=== PATIENT | female | born 1995 | race Caucasian/White ===

== ENCOUNTER 2020-10-08 03:52 | Emergency (ER) | payer OTHER, SELFPAY ==
--- NOTE | ~2020-10-08 | US_ITS ---
EXAMINATION: OBSTETRIC ULTRASOUND - FIRST TRIMESTER CLINICAL INFORMATION: Nausea, vomiting and vaginal spotting. COMPARISON: None TECHNIQUE: Transabdominal and transvaginal imaging of the uterus was performed utilizing marcos scale and color doppler technique. FINDINGS: There are 2 intrauterine gestational sacs both invested in their own chorion. Normal yolk sacs are identified within each gestational sac. Neither pole is seen. Mean sac diameters measure 1.21 cm and 1.14 cm, corresponding to gestational ages of 6 weeks, 0 days and 5 weeks, 6 days. M-mode imaging not performed. No perigestational hemorrhage. There are 2 corpus lutea within the left ovary. Right ovary unremarkable. Ovaries are normal in size. Doppler interrogation of the ovaries was not performed. US/US OB pelvic and transvaginal IMPRESSION: * Dizygotic . * No perigestational hemorrhage.
--- NOTE | ~2020-10-08 | US_ITS ---
EXAMINATION: OBSTETRIC ULTRASOUND - FIRST TRIMESTER CLINICAL INFORMATION: Nausea, vomiting and vaginal spotting. COMPARISON: None TECHNIQUE: Transabdominal and transvaginal imaging of the uterus was performed utilizing marcos scale and color doppler technique. FINDINGS: There are 2 intrauterine gestational sacs both invested in their own chorion. Normal yolk sacs are identified within each gestational sac. Neither pole is seen. Mean sac diameters measure 1.21 cm and 1.14 cm, corresponding to gestational ages of 6 weeks, 0 days and 5 weeks, 6 days. M-mode imaging not performed. No perigestational hemorrhage. There are 2 corpus lutea within the left ovary. Right ovary unremarkable. Ovaries are normal in size. Doppler interrogation of the ovaries was not performed. US/US OB <= 14 wk fetus add gest IMPRESSION: * Dizygotic . * No perigestational hemorrhage.
[2020-10-08 04:06] VITALS: BP 105/50; PULSE 74; RESP 18; TEMP 36.7; O2SAT 99; BMI 27.4
--- NOTE | 2020-10-08 04:54 | ED_ITS ---
HPI - Nausea/Vomiting/Diarrhea General Chief complaint: Nausea/Vomiting/Diarrhea Stated complaint: , chest pains, dizzy, can't breathe Time Seen by Provider: 10/08/20 04:27 Source: patient Mode of arrival: ambulatory History of Present Illness HPI Narrative: 24-year-old female who presents as and approximately 7 weeks and states that for the past 3 days she has had significant nausea and vomiting and woke up yesterday morning with left chest wall pain and difficulty breathing, but then was able to fall back asleep. She states then again last night she woke up felt short of breath, began having continued episodes of nausea and vomiting. However, these have not been associated with fever, chills, urinary pain/burning/frequency. Related Data Previous Rx's Medication Instructions Recorded cefixime 400 mg PO DAILY 7 Days #7 cap 10/08/20 pyridoxine (vitamin B6) 25 mg PO TID 30 Days #90 tab 10/08/20 Allergies Allergy/AdvReac Type Severity Reaction Status Date / Time amoxicillin [AMOXICILLIN] Allergy Severe RESPIRATORY Unverified 01/07/20 17:13 ARREST, anaphylaxis penicillin V Allergy Unknown Anaphylaxis Verified 10/29/19 00:00 Penicillins [PENICILLINS] Allergy Unknown UNKNOWN Unverified 01/07/20 17:13 Sulfa (Sulfonamide Allergy Unknown UNK, Unverified 01/07/20 17:13 Antibiotics) stomach [SULFA (SULFONAMIDE upset ANTIBIOTICS)] sulfamethoxazole AdvReac Intermediate NAUSEA & Unverified 01/07/20 17:13 [From BACTRIM] VOMITING trimethoprim [From BACTRIM] AdvReac Intermediate NAUSEA & Unverified 01/07/20 17:13 VOMITING Review of Systems Review of Systems: Pertinent positives and negatives as stated in HPI 10 point review of systems otherwise negative. PMFSH Past Medical History Source: nursing notes reviewed Medical History Asthma Hyperemesis Social History Social History Advance Directives: No Advance Directives Information Provided: No Patient : Yes Physical Exam Vital Signs: Vital Signs: Last Vital Signs Temp 98.0 F 10/08/20 04:06 Pulse 74 10/08/20 06:41 Resp 24 H 10/08/20 06:41 BP 99/60 10/08/20 06:42 Pulse Ox 99 10/08/20 06:41 Body Mass Index 27.4 VITAL SIGNS: Reviewed. GENERAL: Well developed, well nourished, in no acute distress. HEAD: Normocephalic/atraumatic EYES: PERRLA, EOMI OROPHARYNX: no oral lesions noted, posterior pharynx clear and dry mucosa NECK: Supple, no adenopathy LUNGS: Normal breath sounds. No adventitious sounds or accessory muscle use. SpO2<100> CARDIOVASCULAR: Regular rate and rhythm without noted murmurs ABDOMEN: Soft, non-tender, non-distended with bowel sounds. Course Course Course Narrative: 24-year-old female with history and clinical presentation consistent with hyperemesis but will rule out UTI and suspect that patient's additional symptoms of chest discomfort and dizziness are secondary to dehydration. On review of all investigations evidence UTI but given the nausea and vomiting likely mild pyelonephritis. Patient was IV fluid resuscitated, given antibiotics, and tolerated oral intake. Review of ultrasound demonstrates dizygotic @ 6wks and 5wks, 6 days. MDM - Nausea/Vomiting/Diarrhea Lab Data Result diagrams: 10/08/20 05:01 10/08/20 05:01 Labs: Lab Results 10/08/20 10/08/20 10/08/20 Range/Units 05:01 05:01 05:01 WBC 10.4 (4.8-10.8) X10*3/uL RBC 4.65 (4.20-5.50) X10*6/uL Hgb 11.5 L (12.0-16.0) g/dl Hct 36.3 L (37-47) % MCV 78.1 L (80-98) fL MCH 24.7 L (27.0-33.0) pg MCHC 31.7 (31.0-35.0) g/dl RDW 14.3 (11.0-16.0) % Plt Count 281 (160-400) X10*3/uL MPV 11.0 (9.4-12.3) fL Immature Gran % (Auto) 0.3 (0.0-0.4) % Neut % (Auto) 76.3 H (45-73) % Lymph % (Auto) 15.8 L (20-40) % [place] % (Auto) 6.9 (2-11) % Eos % (Auto) 0.2 (0-4) % Baso % (Auto) 0.5 (0-2) % Lymph # (Auto) 1.6 (1.2-4.9) X10*3/uL [place] # (Auto) 0.7 (0.1-1.2) X10*3/uL Eos # (Auto) 0.0 (0.0-0.4) X10*3/uL Baso # (Auto) 0.1 (0.0-0.2) X10*3/uL Abs Immat Gran (auto) 0.03 (0.00-0.03) X10*3/uL Absolute Neuts (auto) 7.9 (2.0-8.3) X10*3/uL Absolute Nucleated RBC 0.000 (0.0-0.012) X10*3/uL Nucleated RBC % (auto) 0.0 (0.0-0.2) /100WBC Sodium 137 (135-145) mmol/L Potassium 3.9 (3.3-5.1) mmol/L Chloride 107 (96-108) mmol/L Carbon Dioxide 22 (22-29) mmol/L Anion Gap 12 (12-20) BUN 6 L (9-16) mg/dL Creatinine 0.73 (0.5-1.4) mg/dL Estim Creat Clear Calc 124.5 Estimated GFR > 60 Random Glucose 90 (60-115) mg/dL Calcium 9.7 (8.4-10.2) mg/dL Total Bilirubin 1.1 H (0.0-1.0) mg/dL AST 16 (5-31) U/L ALT 8 (0-31) U/L Alkaline Phosphatase 36 L (39-117) U/L Total Protein 7.6 (6.5-8.0) g/dL Albumin 4.6 (3.5-5.0) g/dL Urine Color DARK YELLOW Urine Appearance CLEAR Urine pH 6.5 (5.0-8.0) Ur Specific [place] 1.020 (1.005-1.025) Urine Protein 1+ H (NEG-TRACE) MG/DL Urine Glucose (UA) NEG (NEG) MG/DL Urine Ketones 40 (NEG) MG/DL Urine Blood NEG (NEG) Urine Nitrite NEG (NEG) Ur Leukocyte Esterase 1+ H (NEG) Urine RBC 0-2 (0) /HPF Urine WBC 5-9 H (0-4) /HPF Ur Squamous Epith Cells 2+ /LPF Urine Bacteria 1+ /LPF Urine Mucus 3+ /LPF Discharge Plan Discharge Clinical Impression: Pyelonephritis, Vomiting affecting , Twins, 1st trimester screening Patient Disposition: Home, Self-Care Instructions: Kidney Infection (ED), First Trimester (ED) Additional Instructions: 1. Resume all home medications you may have. 2. 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 3. Increase fluid hydration especially with water, and complete entire course of antibiotics. Return to the ER for worsening symptoms. Prescriptions: New cefixime 400 mg capsule 400 mg PO DAILY 7 Days Qty: 7 RF: 0 pyridoxine (vitamin B6) 25 mg tablet 25 mg PO TID 30 Days Qty: 90 RF: 0 Referrals: Physician,Unknown [Primary Care Provider] - 2 days
[2020-10-08] MEDS: 0.9 % Sodium Chloride 2,000 ML 999 ML IV (05:01)
[2020-10-08 05:02] VITALS: BP 97/56; PULSE 81; RESP 24; O2SAT 100
[2020-10-08 05:10] LABS: MANUAL DIFF FLAG NO
[2020-10-08 05:11] LABS: Basophils Absolute Auto 0.1 X10*3/uL (0.0-0.2); Basophils Percent Auto 0.5 % (0-2); Eosinophils Percent Auto 0.2 % (0-4); Hematocrit 36.3 % (37-47); Hemoglobin 11.5 g/dl (12.0-16.0); Imm Gran Abs Auto 0.03 X10*3/uL (0.00-0.03); Imm Gran Pct Auto 0.3 % (0.0-0.4); Lymphocytes Absolute Auto 1.6 X10*3/uL (1.2-4.9); Lymphocytes Percent Auto 15.8 % (20-40); Mean Corpuscular HGB Conc 31.7 g/dl (31.0-35.0); Mean Corpuscular Hemoglobin 24.7 pg (27.0-33.0); Mean Corpuscular Volume 78.1 fL (80-98); Monocytes Absolute Auto 0.7 X10*3/uL (0.1-1.2); Monocytes Percent Auto 6.9 % (2-11); Neutrophils Absolute Auto 7.9 X10*3/uL (2.0-8.3); Neutrophils Percent Auto 76.3 % (45-73); Platelet Count 281 X10*3/uL (160-400); Red Blood Count 4.65 X10*6/uL (4.20-5.50); Red Cell Distribution Width 14.3 % (11.0-16.0); White Blood Count 10.4 X10*3/uL (4.8-10.8)
[2020-10-08] MEDS: ondansetron HCL 4 MG/2 ML VIAL IVPUSH (05:13)
[2020-10-08 05:15] LABS: Glucose Urine UA NEG (NEG); Leukocyte Esterase Urine 1+ (NEG); Nitrite Urine NEG (NEG); PH 6.5 (5.0-8.0); UACC Culture Trigger YES; Urine Blood NEG (NEG); Urine Ketones 40 MG/DL (NEG); Urine Protein 1+ MG/DL (NEG-TRACE)
[2020-10-08 05:16] LABS: Appearance Urine CLEAR; Color Urine DARK YELLOW
[2020-10-08 05:29] LABS: Bacteria Urine 1+ /LPF; RBC Urine 0-2 /HPF (0); Squamous Epithelial Cell Urine 2+ /LPF
[2020-10-08 05:30] LABS: Mucus Urine 3+ /LPF
[2020-10-08 05:46] LABS: Alanine Aminotransferase 8 U/L (0-31); Albumin Level 4.6 g/dL (3.5-5.0); Alkaline Phosphatase 36 U/L (39-117); Anion Gap 12 (12-20); Aspartate Amino Transferase 16 U/L (5-31); Bilirubin Total 1.1 mg/dL (0.0-1.0); Blood Urea Nitrogen 6 mg/dL (9-16); Calcium 9.7 mg/dL (8.4-10.2); Carbon Dioxide 22 mmol/L (22-29); Chloride 107 mmol/L (96-108); Creatinine Clr Calc Pharmacy 124.5; Estimated Glomerular Filt Rate > 60; Glucose Random 90 mg/dL (60-115); Potassium 3.9 mmol/L (3.3-5.1); Sodium 137 mmol/L (135-145); Total Protein 7.6 g/dL (6.5-8.0)
[2020-10-08 06:41] VITALS: PULSE 74; RESP 24; O2SAT 99
[2020-10-08 06:42] VITALS: BP 99/60
[2020-10-08] MEDS: cefTRIAXone sodium 1 GM in 0.9 % Sodium Chloride 50 ML IV (06:43)
[2020-10-08] MEDS: hydrOXYzine HCL 25 MG TABLET PO (07:30)
== END 2020-10-08 07:51 | disposition home or self-care (01) ==
PROVIDERS: Emergency Provider Student in an Organized Health Care Education/Training Program
DX: O23.01 Infections of kidney in pregnancy, first trimester (principal); O21.9 Vomiting of pregnancy, unspecified; O30.001 Twin pregnancy, unspecified number of placenta and unspecified number of amniotic sacs, first trimester; Z3A.01 Less than 8 weeks gestation of pregnancy
CPT/HCPCS: 36415; 76801; 76802; 76817; 80053; 81001; 81003; 85025; 87086; 96361; 96365; 96375; 99284; J0696; J2405

== ENCOUNTER 2020-12-25 11:05 | Emergency (ER) | payer OTHER, SELFPAY ==
--- NOTE | ~2020-12-25 | CT_ITS ---
EXAMINATION: CT ABDOMEN AND PELVIS WITH CONTRAST CLINICAL INFORMATION: Right-sided abdominal pain COMPARISON: Previous CT of the abdomen and pelvis March 2017 TECHNIQUE: Multidetector volumetric images were obtained from the superior aspect of the liver through the pubic symphysis following administration 85 mL of Omnipaque 350 intravenous contrast. Sagittal and coronal reformatted images were obtained on the technologist's workstation. Oral contrast: Yes This CT examination was performed using dose optimization techniques as appropriate, variously including the following: *Automated exposure control *Adjustment of mA and/or kV according to patient size (this includes techniques or standardized protocols for targeted exams where dose is matched to indication/reason for exam; i.e. extremities or head) *Use of iterative reconstruction technique DLP: 660 mGy-cm FINDINGS: LUNG BASES: The visualized lung bases are unremarkable. LIVER, GALLBLADDER, AND BILIARY TREE: The liver is normal in size, shape, and attenuation. No focal hepatic lesion or biliary ductal dilatation is present. The gallbladder is unremarkable with no evidence of radiopaque gallstones, gallbladder wall thickening, or obvious pericholecystic inflammatory changes. PANCREAS: Unremarkable. SPLEEN: Unremarkable. ADRENAL GLANDS: Unremarkable. KIDNEYS AND URETERS: The kidneys are normal in size, shape, and attenuation. No hydronephrosis, hydroureter, or calculi seen. No perinephric stranding. BLADDER: Unremarkable. GASTROINTESTINAL TRACT: There is stool throughout the colon questionable for constipation. The small and large bowel are otherwise unremarkable. The appendix is unremarkable. ABDOMINAL WALL: No significant hernia is appreciated. LYMPH NODES: Normal. VASCULAR: Unremarkable. PELVIC VISCERA: Unremarkable. OSSEOUS STRUCTURES: Unremarkable. CT/CT abdomen pelvis w con IMPRESSION: Stool throughout the colon questionable for constipation. Otherwise unremarkable exam. The appendix is normal appearing.
[2020-12-25 11:08] VITALS: BP 105/71; PULSE 80; RESP 16; TEMP 36.6; O2SAT 98; BMI 28.4
--- NOTE | 2020-12-25 11:09 | ED.ABDPAIN ---
HPI - Abdominal Pain General Chief Complaint: Abdominal Pain Stated Complaint: ABD PAIN Time Seen by Provider: 12/25/20 11:09 Source: patient Mode of arrival: ambulatory Limitations: no limitations History of Present Illness HPI narrative: 25-year-old female presents with 1 week of worsening abdominal pain. The pain is in her upper abdomen and feels like it is under her ribs. The pain radiates to her left back. She is nauseous. States the pain is a 6/10. Worse with eating and drinking. Worse with lying flat. She feels like there is a balloon under her ribs, and feels bloated. No fevers, no vomiting, no diarrhea. No dysuria, but increased urinary frequency. She is currently menstruating. She has also had a sharp left pelvic pain that is been intermittent. She saw her front end assistant 3 days ago and had STD swabs all of which were negative she reports. History of ovarian cysts. No vaginal discharge prior to her periods. to her menses starting. She does not drink, she does not smoke. No prior abdominal surgeries. Patient had a termination in September 2020. MD elicited complaint: abdominal pain Onset (ago): week(s) (1) Pain Consistency: constant Location: LUQ, RUQ and L flank Severity: moderate Pain scale (0-10): 6 Quality: cramping and fullness Radiation: back Migration to: no migration Exacerbating factors: eating Relieving factors: rest Associated symptoms: nausea Related Data Previous Rx's Medication Instructions Recorded cefixime 400 mg capsule 400 mg PO DAILY 7 Days #7 cap 10/08/20 pyridoxine (vitamin B6) 25 mg 25 mg PO TID 30 Days #90 tab 10/08/20 tablet nitrofurantoin 100 mg PO Q12H 5 Days #10 cap 12/25/20 monohydrate/macrocrystals 100 mg capsule (Macrobid) Allergies Allergy/AdvReac Type Severity Reaction Status Date / Time amoxicillin [AMOXICILLIN] Allergy Severe RESPIRATORY Unverified 01/07/20 17:13 ARREST, anaphylaxis penicillin V Allergy Unknown Anaphylaxis Verified 10/29/19 00:00 Penicillins [PENICILLINS] Allergy Unknown UNKNOWN Unverified 01/07/20 17:13 Sulfa (Sulfonamide Allergy Unknown UNK, Unverified 01/07/20 17:13 Antibiotics) stomach [SULFA (SULFONAMIDE upset ANTIBIOTICS)] sulfamethoxazole AdvReac Intermediate NAUSEA & Unverified 01/07/20 17:13 [From BACTRIM] VOMITING trimethoprim [From BACTRIM] AdvReac Intermediate NAUSEA & Unverified 01/07/20 17:13 VOMITING Review of Systems Constitutional: Denies body ache(s), Denies chills, Denies fatigue, Denies fever(s) and Denies headache(s) Eyes: Denies blurry vision and Denies diplopia Denies dizziness, Denies otalgia, Denies headache(s), Denies post nasal drip, Denies sinus pain and Denies sore throat Cardiovascular: Denies chest pain, Denies syncope, Denies leg edema, Denies lightheadedness, Reports Loss of Consciousness, Denies palpitations and Denies dyspnea Respiratory: Denies chest congestion, Denies cough and Denies dyspnea Gastrointestinal: Reports abdominal pain, Reports bloating, Denies hematochezia, Denies constipation, Denies diarrhea, Reports nausea and Denies vomiting Genitourinary: Denies abnormal vaginal bleeding, Denies hematuria, Denies genital lesions, Denies dysmenorrhea, Denies dysuria, Reports pelvic pain, Reports flank pain, Denies urinary hesitancy, Denies urinary urgency and Denies vaginal discharge Musculoskeletal: Reports back pain Skin/Breast: Denies erythema and Denies rash Denies dizziness, Denies syncope and Denies headache(s) Psychiatric: Denies anxiety and Denies depression Endocrine: Denies fatigue and Denies palpitations Physical Exam Vital Signs: Vital Signs: Last Vital Signs Temp 97.8 F 12/25/20 11:08 Pulse 80 12/25/20 11:08 Resp 16 12/25/20 11:08 BP 105/71 12/25/20 11:08 Pulse Ox 98 12/25/20 11:08 Body Mass Index 28.4 Const: General: cooperative, no acute distress, well developed, alert and awake Nutritional Appearance: well nourished Orientation/consciousness: patient oriented x3 Limitations: no limitations HENMT: Head: Yes normal to inspection, Yes normocephalic and Yes atraumatic Ears: hearing grossly normal bilaterally and external ears normal General nose exam: Normal external nose present Mouth: Normal oral and palatal mucosa present Throat: Yes posterior oropharynx normal Eyes: Conjunctivae: conjunctivae normal Pupils: Equal, round and reactive pupils present EOM: EOMs intact bilaterally Neck: Neck: Yes full ROM, Yes no lymphadenopathy and Yes supple Resp: Effort & Inspection: normal respiratory effort and able to speak in complete sentences Auscultation: clear to auscultation bilaterally, no crackles, no rales, no rhonchi and no wheezes Cardio: Rate: regular rate Rhythm: regular rhythm Heart sounds: S1 normal heart sound present and S2 normal heart sound present GI: Inspection: Yes normal to inspection Palpation (GI): Soft to palpation, Tenderness to palpation present (GI) in the epigastrum, in the LLQ, in the RLQ, in the LUQ, in the RUQ and at McBurney's point, Guarding due to palpation present (GI) in the RLQ, in the LUQ and in the RUQ, not rigid and No Rebound tenderness present Percussion: Yes normal to percussion Auscultation: normal bowel sounds : General: Yes CVA tenderness (mild) bilateral Back/Spine/Pelvis: Back: CVA tenderness (mild) Skin: General skin exam: no rashes or lesions noted Neuro: General: patient oriented x3, tone normal and moves all extremities Cranial nerves: Yes Equal, round and reactive pupils present Extrem: General: Yes normal to inspection and Yes full ROM Psych: Appearance: grossly normal Affect: normal affect Attitude: cooperative Thought process: Normal thought process present Course Course Course Narrative: 25-year-old female presents for upper abdominal pain and bloating for 1 week, having a hard time eating and drinking because it makes the pain worse. On exam, patient is afebrile with stable vitals, abdominal exam shows soft abdomen with good bowel sounds, patient is tender in all quadrants, and especially guarding right lower quadrant. Patient also has mild bilateral CVA tenderness. Patient did endorse left pelvic pain, however, her abdominal exam is most concerning. Will start with CT abdomen pelvis, labs, urine, and re-evaluate if patient needs pelvic US. Offered pain medication, patient did not want any medication, not even Tylenol. Patient's white blood cell count is 4.0, CMP is unremarkable, lipase is only 18. Urine shows trace leukocyte esterase positive blood trace bacteria 1-[address] shows Stool throughout the colon questionable for constipation. Otherwise unremarkable exam. The appendix is normal appearing. Patient however states she is having normal bowel movements, her stools are not hard and she has regular bowel movements. Will treat patient for constipation and UTI, referred patient to GI, counseled patient with return precautions. MDM - Abdominal Pain Lab Data Result diagrams: 12/25/20 11:49 12/25/20 11:49 Labs: Lab Results 12/25/20 12/25/20 12/25/20 Range/Units 11:49 11:49 11:49 WBC 4.0 L (4.8-10.8) X10*3/uL RBC 4.77 (4.20-5.50) X10*6/uL Hgb 11.6 L (12.0-16.0) g/dl Hct 37.4 (37-47) % MCV 78.4 L (80-98) fL MCH 24.3 L (27.0-33.0) pg MCHC 31.0 (31.0-35.0) g/dl RDW 14.6 (11.0-16.0) % Plt Count 192 D (160-400) X10*3/uL MPV 11.4 (9.4-12.3) fL Immature Gran % (Auto) 0.2 (0.0-0.4) % Neut % (Auto) 57.8 (45-73) % Lymph % (Auto) 30.9 (20-40) % [place] % (Auto) 8.9 (2-11) % Eos % (Auto) 1.5 (0-4) % Baso % (Auto) 0.7 (0-2) % Lymph # (Auto) 1.3 (1.2-4.9) X10*3/uL [place] # (Auto) 0.4 (0.1-1.2) X10*3/uL Eos # (Auto) 0.1 (0.0-0.4) X10*3/uL Baso # (Auto) 0.0 (0.0-0.2) X10*3/uL Abs Immat Gran (auto) 0.01 (0.00-0.03) X10*3/uL Absolute Neuts (auto) 2.3 (2.0-8.3) X10*3/uL Absolute Nucleated RBC 0.000 (0.0-0.012) X10*3/uL Nucleated RBC % (auto) 0.0 (0.0-0.2) /100WBC Sodium 139 (135-145) mmol/L Potassium 4.1 (3.3-5.1) mmol/L Chloride 107 (96-108) mmol/L Carbon Dioxide 24 (22-29) mmol/L Anion Gap 12 (12-20) BUN 7 L (9-16) mg/dL Creatinine 0.76 (0.5-1.4) mg/dL Estim Creat Clear Calc 120.5 Estimated GFR > 60 Random Glucose 93 (60-115) mg/dL Calcium 9.3 (8.4-10.2) mg/dL Total Bilirubin 1.0 (0.0-1.0) mg/dL AST 16 (5-31) U/L ALT 9 (0-31) U/L Alkaline Phosphatase 29 L (39-117) U/L Total Protein 7.0 (6.5-8.0) g/dL Albumin 4.4 (3.5-5.0) g/dL Lipase 18 (8-78) U/L Urine Color Urine Appearance Urine pH (5.0-8.0) Ur Specific [place] (1.005-1.025) Urine Protein (NEG-TRACE) MG/DL Urine Glucose (UA) (NEG) MG/DL Urine Ketones (NEG) MG/DL Urine Blood (NEG) Urine Nitrite (NEG) Ur Leukocyte Esterase (NEG) Urine RBC (0) /HPF Urine WBC (0-4) /HPF Ur Squamous Epith Cells /LPF Urine Bacteria /LPF Urine Test (NEGATIVE) COVID-19 (WOODY) Negative (Negative) COVID-19 Clin Com See Note 12/25/20 12/25/20 Range/Units 12:02 12:02 WBC (4.8-10.8) X10*3/uL RBC (4.20-5.50) X10*6/uL Hgb (12.0-16.0) g/dl Hct (37-47) % MCV (80-98) fL MCH (27.0-33.0) pg MCHC (31.0-35.0) g/dl RDW (11.0-16.0) % Plt Count (160-400) X10*3/uL MPV (9.4-12.3) fL Immature Gran % (Auto) (0.0-0.4) % Neut % (Auto) (45-73) % Lymph % (Auto) (20-40) % [place] % (Auto) (2-11) % Eos % (Auto) (0-4) % Baso % (Auto) (0-2) % Lymph # (Auto) (1.2-4.9) X10*3/uL [place] # (Auto) (0.1-1.2) X10*3/uL Eos # (Auto) (0.0-0.4) X10*3/uL Baso # (Auto) (0.0-0.2) X10*3/uL Abs Immat Gran (auto) (0.00-0.03) X10*3/uL Absolute Neuts (auto) (2.0-8.3) X10*3/uL Absolute Nucleated RBC (0.0-0.012) X10*3/uL Nucleated RBC % (auto) (0.0-0.2) /100WBC Sodium (135-145) mmol/L Potassium (3.3-5.1) mmol/L Chloride (96-108) mmol/L Carbon Dioxide (22-29) mmol/L Anion Gap (12-20) BUN (9-16) mg/dL Creatinine (0.5-1.4) mg/dL Estim Creat Clear Calc Estimated GFR Random Glucose (60-115) mg/dL Calcium (8.4-10.2) mg/dL Total Bilirubin (0.0-1.0) mg/dL AST (5-31) U/L ALT (0-31) U/L Alkaline Phosphatase (39-117) U/L Total Protein (6.5-8.0) g/dL Albumin (3.5-5.0) g/dL Lipase (8-78) U/L Urine Color YELLOW Urine Appearance HAZY Urine pH 8.0 (5.0-8.0) Ur Specific [place] 1.015 (1.005-1.025) Urine Protein 1+ H (NEG-TRACE) MG/DL Urine Glucose (UA) NEG (NEG) MG/DL Urine Ketones NEG (NEG) MG/DL Urine Blood 3+ H (NEG) Urine Nitrite NEG (NEG) Ur Leukocyte Esterase TRACE H (NEG) Urine RBC 15-29 H (0) /HPF Urine WBC 1-4 (0-4) /HPF Ur Squamous Epith Cells 2+ /LPF Urine Bacteria TRACE /LPF Urine Test NEGATIVE (NEGATIVE) COVID-19 (WOODY) (Negative) COVID-19 Clin Com Discharge Plan Discharge Clinical Impression: Abdominal pain Qualifiers: Abdominal location: generalized Qualified Code(s): R10.84 - Generalized abdominal pain UTI (urinary tract infection) Qualifiers: Urinary tract infection type: acute cystitis Hematuria presence: without hematuria Qualified Code(s): N30.00 - Acute cystitis without hematuria Patient Disposition: Home, Self-Care Instructions: Urinary Tract Infection in Women (ED), Abdominal Pain (ED) Additional Instructions: Please call Dr. Luu on Saturday, he is the gastroenterologists, his number is [phone]. The CT scan of your abdomen was negative for any pathology in your abdomen or pelvis. Your urine however did show trace amount bacteriuria which we will treat. Please return to the emergency room if you have worsening severe abdominal pain, intractable vomiting, fevers, or any other new or concerning symptoms. Prescriptions: New nitrofurantoin monohyd/m-cryst [Macrobid] 100 mg capsule 100 mg PO Q12H 5 Days Qty: 10 RF: 0 No Action cefixime 400 mg capsule 400 mg PO DAILY 7 Days Qty: 7 RF: 0 pyridoxine (vitamin B6) 25 mg tablet 25 mg PO TID 30 Days Qty: 90 RF: 0 Referrals: Omar Luu [Physician] - 2 days (negative CT abd/pelvis today, generalized abdominal pain and bloating) [facility] Past Medical History [facility] Narrative: Pyelonephritis Medical History Asthma Hyperemesis Social History Social History Advance Directives: Yes Advance Directives Information Provided: Yes Advance Directives on File: No Patient : No
[2020-12-25 11:53] LABS: MANUAL DIFF FLAG NO
[2020-12-25 11:55] LABS: Basophils Percent Auto 0.7 % (0-2); Eosinophils Absolute Auto 0.1 X10*3/uL (0.0-0.4); Eosinophils Percent Auto 1.5 % (0-4); Hematocrit 37.4 % (37-47); Hemoglobin 11.6 g/dl (12.0-16.0); Imm Gran Abs Auto 0.01 X10*3/uL (0.00-0.03); Imm Gran Pct Auto 0.2 % (0.0-0.4); Lymphocytes Absolute Auto 1.3 X10*3/uL (1.2-4.9); Lymphocytes Percent Auto 30.9 % (20-40); Mean Corpuscular Hemoglobin 24.3 pg (27.0-33.0); Mean Corpuscular Volume 78.4 fL (80-98); Mean Platelet Volume 11.4 fL (9.4-12.3); Monocytes Absolute Auto 0.4 X10*3/uL (0.1-1.2); Monocytes Percent Auto 8.9 % (2-11); Neutrophils Absolute Auto 2.3 X10*3/uL (2.0-8.3); Neutrophils Percent Auto 57.8 % (45-73); Platelet Count 192 X10*3/uL (160-400); Red Blood Count 4.77 X10*6/uL (4.20-5.50); Red Cell Distribution Width 14.6 % (11.0-16.0)
[2020-12-25 12:08] LABS: COVID-19 Test Negative (Negative); IDNOW Serial# 55D5AD1C
[2020-12-25 12:10] LABS: Alanine Aminotransferase 9 U/L (0-31); Albumin Level 4.4 g/dL (3.5-5.0); Alkaline Phosphatase 29 U/L (39-117); Anion Gap 12 (12-20); Aspartate Amino Transferase 16 U/L (5-31); Blood Urea Nitrogen 7 mg/dL (9-16); Calcium 9.3 mg/dL (8.4-10.2); Carbon Dioxide 24 mmol/L (22-29); Chloride 107 mmol/L (96-108); Creatinine Clr Calc Pharmacy 120.5; Estimated Glomerular Filt Rate > 60; Glucose Random 93 mg/dL (60-115); Lipase 18 U/L (8-78); Potassium 4.1 mmol/L (3.3-5.1); Sodium 139 mmol/L (135-145)
[2020-12-25] MEDS: 0.9 % Sodium Chloride 1,000 ML 999 ML IV (12:10)
[2020-12-25] MEDS: ondansetron HCL 4 MG/2 ML VIAL IVPUSH (12:10)
[2020-12-25 12:14] LABS: Glucose Urine UA NEG (NEG); Leukocyte Esterase Urine TRACE (NEG); Nitrite Urine NEG (NEG); Specific Gravity - Urine 1.015 (1.005-1.025); Urine Blood 3+ (NEG); Urine Ketones NEG (NEG); Urine Protein 1+ MG/DL (NEG-TRACE)
[2020-12-25 12:16] LABS: Appearance Urine HAZY; Color Urine YELLOW; UPreg QC Valid YES; Urine Pregnancy NEGATIVE (NEGATIVE)
[2020-12-25 12:28] LABS: Bacteria Urine TRACE /LPF; Squamous Epithelial Cell Urine 2+ /LPF
[2020-12-25] MEDS: iohexoL 350 MG/ML 100 ML INFUS..BTL IV (13:30)
== END 2020-12-25 15:39 | disposition home or self-care (01) ==
PROVIDERS: Physician Assistant; Emergency Provider Emergency Medicine
DX: N30.00 Acute cystitis without hematuria (principal); R10.11 Right upper quadrant pain; R10.12 Left upper quadrant pain; R11.2 Nausea with vomiting, unspecified; Z20.822 Contact with and (suspected) exposure to COVID-19; Z79.899 Other long term (current) drug therapy
CPT/HCPCS: 36415; 74177; 80053; 81001; 81025; 83690; 85025; 87635; 96365; 96375; 99283; 99284; J2405; Q9967

== ENCOUNTER 2021-03-15 09:56 | Emergency (ER) | payer OTHER, SELFPAY ==
--- NOTE | 2021-03-15 | ECG_ITS ---
Test Reason : chest pain Blood Pressure : / mmHG Vent. Rate : 067 BPM Atrial Rate : 067 BPM P-R Int : 142 ms QRS Dur : 088 ms QT Int : 394 ms P-R-T Axes : 029 036 027 degrees QTc Int : 416 ms Normal sinus rhythm Normal ECG When compared with ECG of 19-DEC-2019 13:33, No significant change was found Referred By: Alejandro Angel Electronically Signed By:KACIE DEE MD
--- NOTE | ~2021-03-15 | XR_ITS ---
EXAMINATION: XR CHEST CLINICAL INFORMATION: Chest pain. On antibiotics. COMPARISON: None TECHNIQUE: 2 views of the chest were obtained. FINDINGS: No significant abnormality is noted involving the heart, lungs, mediastinum, bony thorax or soft tissues. XR/XR chest 2V IMPRESSION: Unremarkable chest examination.
--- NOTE | 2021-03-15 10:03 | ED.CHESTPAIN ---
HPI - Chest Pain General Chief Complaint: Chest Pain Stated Complaint: chest pain radiating to back & arms Time Seen by Provider: 03/15/21 10:03 Source: patient Mode of arrival: ambulatory Limitations: no limitations History of Present Illness HPI narrative: chest pain for the past few days radiating down right arm. patient has been coughing for the past few months was started on zpack and prednisone and a pump. Covid negative yesterday. MD complaint: chest pain Onset (ago): day(s) Timing of current episode: constant Onset: during rest Pain location: other (upper) Pain radiation: right arm Severity: moderate Quality: other (heartburn) Associated symptoms: cough Related Data Previous Rx's Medication Instructions Recorded cefixime 400 mg capsule 400 mg PO DAILY 7 Days #7 cap 10/08/20 pyridoxine (vitamin B6) 25 mg 25 mg PO TID 30 Days #90 tab 10/08/20 tablet nitrofurantoin 100 mg PO Q12H 5 Days #10 cap 12/25/20 monohydrate/macrocrystals 100 mg capsule (Macrobid) pantoprazole 40 mg tablet,delayed 40 mg PO DAILY #20 tab 03/15/21 release (Protonix) Allergies Allergy/AdvReac Type Severity Reaction Status Date / Time amoxicillin [AMOXICILLIN] Allergy Severe RESPIRATORY Verified 03/15/21 10:05 ARREST, anaphylaxis penicillin V Allergy Unknown Anaphylaxis Verified 03/15/21 10:05 Penicillins [PENICILLINS] Allergy Unknown UNKNOWN Verified 03/15/21 10:05 Sulfa (Sulfonamide Allergy Unknown UNK, Verified 03/15/21 10:05 Antibiotics) stomach [SULFA (SULFONAMIDE upset ANTIBIOTICS)] sulfamethoxazole AdvReac Intermediate NAUSEA & Verified 03/15/21 10:05 [From BACTRIM] VOMITING trimethoprim [From BACTRIM] AdvReac Intermediate NAUSEA & Verified 03/15/21 10:05 VOMITING Review of Systems Constitutional: Constitutional: Reports no additional constitutional complaints Eyes: Eyes: Reports no additional eye complaints ENT: Denies dizziness Cardiovascular: Cardiovascular: Reports no additional cardiovascular complaints Respiratory: Respiratory: Reports as per HPI Gastrointestinal: Gastrointestinal: Reports no additional gastrointestinal complaints Genitourinary: Genitourinary: Reports no additional female genitourinary complaints Musculoskeletal: Musculoskeletal: Reports no additional musculoskeletal complaints Integumentary/Breasts: Skin/Breast: Denies rash Neurologic: Reports system reviewed and no additional complaints, except as documented, Denies dizziness and Denies Sensory deficit (Neuro) Psychiatric: Psychiatric: Denies anxiety [facility] Past Medical History Medical History Asthma Hyperemesis Social History Social History Alcohol intake: never Patient Tobacco Use Status: Never used Tobacco Use of substances other than those prescribed or required for medical reasons: No Advance Directives: No Patient : No Physical Exam Vital Signs: Vital Signs: Last Vital Signs Pulse 71 03/15/21 10:05 Resp 18 03/15/21 10:05 BP 104/59 L 03/15/21 10:05 Pulse Ox 100 03/15/21 10:05 Body Mass Index 27.3 Const: General: healthy appearing Nutritional Appearance: average body habitus Orientation/consciousness: oriented to person and patient oriented x3 Limitations: no limitations HENMT: Head: Yes normal to inspection Ears: external ears normal General nose exam: Normal external nose present Mouth: Normal oral and palatal mucosa present and oropharynx normal Throat: Yes posterior oropharynx normal Eyes: General: appearance normal, both eyes and all related structures Neck: Other: supple Neck: Yes normal visual inspection Chest: Chest palpation & inspection: normal inspection of the chest Resp: Auscultation: clear to auscultation bilaterally Cardio: Jugular venous distension: no JVD Rate: regular rate Rhythm: regular rhythm Heart sounds: S1 normal heart sound present and S2 normal heart sound present GI: Inspection: Yes normal to inspection Palpation (GI): Soft to palpation, nontender and No hepatosplenomegaly present Auscultation: normal bowel sounds : General: Yes no CVA tenderness Back/Spine/Pelvis: Back: no CVA tenderness Skin: General skin exam: no rashes or lesions noted Neuro: General: oriented to person and patient oriented x3 Cranial nerves: Yes CN's II-XII intact bilaterally Motor exam (neuro): 5/5 motor strength present throughout Sensory Exam: No Sensory deficit (Neuro) Extrem: General: Yes normal to inspection Psych: Appearance: grossly normal Course Reevaluation(s) Reevaluation #1: patient looks well, vitals normal, EKG normal, CXR normal will start protonix for likely gastritis. No evidence of Heart or lung pathology Time: 11:11 [facility] - Chest Pain Imaging Data Chest x-ray: Radiologist's impression: IMPRESSION: Unremarkable chest examination. ECG Data ECG #1: Attestation: I personally reviewed and interpreted this ECG as follows: Interpretation: sinus rate 65, no st or twave changes Discharge Plan Discharge Clinical Impression: Atypical chest pain Gastritis Qualifiers: Gastritis type: unspecified gastritis Chronicity: acute Gastritis bleeding: without bleeding Qualified Code(s): K29.00 - Acute gastritis without bleeding Patient Disposition: Home, Self-Care Instructions: Gastritis (ED), Noncardiac Chest Pain (ED) Prescriptions: New pantoprazole [Protonix] 40 mg tablet,delayed release (DR/EC) 40 mg PO DAILY Qty: 20 RF: 0 No Action nitrofurantoin monohyd/m-cryst [Macrobid] 100 mg capsule 100 mg PO Q12H 5 Days Qty: 10 RF: 0 cefixime 400 mg capsule 400 mg PO DAILY 7 Days Qty: 7 RF: 0 pyridoxine (vitamin B6) 25 mg tablet 25 mg PO TID 30 Days Qty: 90 RF: 0 Referrals: Physician,Unknown J [Primary Care Provider] - 1 week
[2021-03-15 10:05] VITALS: BP 104/59; PULSE 71; RESP 18; O2SAT 100; BMI 27.3
[2021-03-15] MEDS: PHENobarb/Hyoscy/Atropine/Scop 10 ML ELIXIR PO (10:22)
[2021-03-15] MEDS: Lidocaine HCl Viscous 2 % 15 ML SOLUTION MUCOUS MEM (10:23)
[2021-03-15] MEDS: Magnesium Hydrox/Alum Hydrox 30 ML ORAL.SUSP PO (10:23)
[2021-03-15 11:24] VITALS: BP 119/58; PULSE 66; RESP 16; O2SAT 99
== END 2021-03-15 11:25 | disposition home or self-care (01) ==
PROVIDERS: Emergency Provider Emergency Medicine
DX: R07.9 Chest pain, unspecified (principal); K29.00 Acute gastritis without bleeding; M54.50 Low back pain, unspecified; M79.602 Pain in left arm; M79.601 Pain in right arm; Z79.899 Other long term (current) drug therapy
CPT/HCPCS: 71046; 93005; 99283; 99285

== ENCOUNTER 2021-05-16 16:04 | Emergency (ER) | payer OTHER, SELFPAY ==
--- NOTE | ~2021-05-16 | CT_ITS ---
EXAMINATION: CT ABDOMEN AND PELVIS WITH CONTRAST CLINICAL INFORMATION: Left flank pain. COMPARISON: CT abdomen/pelvis dated from 12/25/2020. TECHNIQUE: Multidetector volumetric images were obtained from the superior aspect of the liver through the pubic symphysis following administration 85 mL of Omnipaque 350 intravenous contrast. Sagittal and coronal reformatted images were obtained on the technologist's workstation. Oral contrast: No This CT examination was performed using dose optimization techniques as appropriate, variously including the following: *Automated exposure control *Adjustment of mA and/or kV according to patient size (this includes techniques or standardized protocols for targeted exams where dose is matched to indication/reason for exam; i.e. extremities or head) *Use of iterative reconstruction technique DLP: 620 mGy-cm FINDINGS: LUNG BASES: The visualized lung bases are unremarkable. LIVER, GALLBLADDER, AND BILIARY TREE: The liver is normal in size, shape, and attenuation. No focal hepatic lesion or biliary ductal dilatation is present. The gallbladder is unremarkable with no evidence of radiopaque gallstones, gallbladder wall thickening, or obvious pericholecystic inflammatory changes. PANCREAS: Unremarkable. SPLEEN: Unremarkable. ADRENAL GLANDS: Unremarkable. KIDNEYS AND URETERS: The kidneys are normal in size, shape, and attenuation. No hydronephrosis, hydroureter, or calculi seen. No perinephric stranding. BLADDER: Unremarkable. GASTROINTESTINAL TRACT: The stomach and the small bowel are nondilated. Normal appendix. Mild colonic diverticulosis without associated inflammatory changes. The distal colon is underdistended limiting assessment of wall thickening and mural abnormalities. ABDOMINAL WALL: No significant hernia is appreciated. LYMPH NODES: A few prominent mesenteric lymph nodes are not significantly changed and of uncertain significance. No lymphadenopathy by size criteria. VASCULAR: Unremarkable. PELVIC VISCERA: Functional follicles in both ovaries. Trace amount of free fluid, likely physiologic. OSSEOUS STRUCTURES: No acute or aggressive osseous abnormalities. Partial L5 sacralization. CT/CT abdomen pelvis w con IMPRESSION: No acute abdominal or pelvic abnormalities to explain the patient's symptoms. Mild colonic diverticulosis without evidence of acute diverticulitis.
[2021-05-16 16:23] VITALS: BP 113/59; PULSE 63; RESP 18; TEMP 37.2; O2SAT 100; BMI 28.2
[2021-05-16 16:36] LABS: MANUAL DIFF FLAG NO
[2021-05-16 16:40] LABS: Basophils Percent Auto 0.6 % (0-2); Eosinophils Absolute Auto 0.1 X10*3/uL (0.0-0.4); Eosinophils Percent Auto 1.2 % (0-4); Hemoglobin 11.5 g/dl (12.0-16.0); Imm Gran Abs Auto 0.01 X10*3/uL (0.00-0.03); Imm Gran Pct Auto 0.2 % (0.0-0.4); Lymphocytes Absolute Auto 1.8 X10*3/uL (1.2-4.9); Lymphocytes Percent Auto 28.2 % (20-40); Mean Corpuscular HGB Conc 30.3 g/dl (31.0-35.0); Mean Corpuscular Hemoglobin 23.6 pg (27.0-33.0); Mean Platelet Volume 11.3 fL (9.4-12.3); Monocytes Absolute Auto 0.5 X10*3/uL (0.1-1.2); Monocytes Percent Auto 8.4 % (2-11); Neutrophils Absolute Auto 3.9 x10*3/uL (2.0-8.3); Neutrophils Percent Auto 61.4 % (45-73); Platelet Count 222 X10*3/uL (160-400); Red Blood Count 4.87 X10*6/uL (4.20-5.50); Red Cell Distribution Width 15.7 % (11.0-16.0); White Blood Count 6.4 X10*3/uL (4.8-10.8)
[2021-05-16 16:53] LABS: Anion Gap 10 (12-20); Blood Urea Nitrogen 9 mg/dL (9-16); Calcium 9.7 mg/dL (8.4-10.2); Carbon Dioxide 27 mmol/L (22-29); Chloride 106 mmol/L (96-108); Creatinine Clr Calc Pharmacy 120.3; Estimated Glomerular Filt Rate > 60; Glucose Random 93 mg/dL (60-115); Potassium 4.3 mmol/L (3.3-5.1); Sodium 139 mmol/L (135-145)
[2021-05-16 16:55] LABS: Appearance Urine CLEAR; Color Urine YELLOW; Glucose Urine UA NEG (NEG); Leukocyte Esterase Urine NEG (NEG); Nitrite Urine NEG (NEG); Urine Blood NEG (NEG); Urine Ketones 15 MG/DL (NEG); Urine Protein NEG (NEG-TRACE)
[2021-05-16 17:15] LABS: Bacteria Urine TRACE /LPF; Squamous Epithelial Cell Urine TRACE /LPF; WBC Urine 0-2 /HPF (0-4)
--- NOTE | 2021-05-16 17:37 | ED_ITS ---
HPI - General Adult General Chief complaint: General Medical Stated complaint: Severe abdominal pain- Left side Source: patient Mode of arrival: ambulatory Limitations: no limitations History of Present Illness HPI narrative: 25-year-old female presents with 8/10 left-sided flank pain that radiates to her left groin. States that she does have some nausea at times but has not vomited, denies fevers and chills. Denies sick contacts. Stated that she was working out yesterday and noted some pain to the left side. States the pain is gradually increased and she is having hard time walking. Does not report any prior abdominal surgeries. Onset (ago): day(s) (2) Location: abdomen Radiation: flank Severity: moderate Severity scale (1-10): 8 Quality: aching and constant Pain Consistency: constant Relieving factors: none Exacerbating factors: movement Associated symptoms: denies other symptoms Treatments prior to arrival: none Related Data Previous Rx's Medication Instructions Recorded cefixime 400 mg capsule 400 mg PO DAILY 7 Days #7 cap 10/08/20 pyridoxine (vitamin B6) 25 mg 25 mg PO TID 30 Days #90 tab 10/08/20 tablet nitrofurantoin 100 mg PO Q12H 5 Days #10 cap 12/25/20 monohydrate/macrocrystals 100 mg capsule (Macrobid) pantoprazole 40 mg tablet,delayed 40 mg PO DAILY #20 tab 03/15/21 release (Protonix) Allergies Allergy/AdvReac Type Severity Reaction Status Date / Time amoxicillin Allergy Severe RESPIRATORY Verified 05/16/21 16:23 [AMOXICILLIN] ARREST, anaphylaxis penicillin V Allergy Unknown Anaphylaxis Verified 05/16/21 16:23 Penicillins Allergy Unknown UNKNOWN Verified 05/16/21 16:23 [PENICILLINS] Sulfa (Sulfonamide Allergy Unknown UNK, Verified 05/16/21 16:23 Antibiotics) stomach [SULFA upset (SULFONAMIDE ANTIBIOTICS)] sulfamethoxazole AdvReac Intermediate NAUSEA & Verified 05/16/21 16:23 [From BACTRIM] VOMITING trimethoprim [From AdvReac Intermediate NAUSEA & Verified 05/16/21 16:23 BACTRIM] VOMITING Review of Systems Verdana 4l Review of Systems: Verdana 4d Verdana 4d Constitutional: No Fever, No Chills ENT/Mouth: No Ear Pain, No Hoarseness, No sore throat Eyes: No Eye Pain, No Swelling, No Redness, No Foreign Body Cardiovascular: No Chest Pain, No SOB Respiratory: No Cough, No Dyspnea GastrointestinalGastrointestinal: Positive left flank pain, positive groin pain, No Nausea, No Vomiting, No Diarrhea Genitourinary: No Dysuria, No Hematuria Musculoskeletal: positive abdominal muscular pain, No Myalgias, No Joint Swelling Skin: No Skin lacerations, No rash Neuro: No Weakness, No Numbness, No Paresthesias, No Loss of Consciousness, No Dizziness, No Headache Psych: No Anxiety/Panic, No Depression Heme/Lymph: no easy bruising, no Lymphadenopathy Endocrine: No Polyuria, No Polydipsia Yes all other systems are reviewed and are negative PMFSH Past Medical History Attestation statement: The following information was validated with the patient. Source: old records reviewed Medical History Asthma Hyperemesis Social History Social History Alcohol intake: never Patient Tobacco Use Status: Never used Tobacco Smoked in Last 30 Days: No Use of substances other than those prescribed or required for medical reasons: No Advance Directives: No Advance Directives Information Provided: Yes Patient : No Physical Exam Verdana 4l Vital Signs: Verdana 4d Verdana 4d Vital Signs: Verdana 4d Verdana 4Bd Last Vital Signs Verdana 4d Weight Control Lecturer New 4d Weight Control Lecturer New 4d Temp 97.4 F 05/16/21 19:25 Weight Control Lecturer New 4d Pulse 59 05/16/21 19:25 Weight Control Lecturer NewNew 4d Resp 16 05/16/21 19:25 BP 102/52 L 05/16/21 19:25 Pulse Ox 100 05/16/21 19:25 BMI result Body Mass Index 28.2 Appearance: Alert. Oriented X3. No acute distress. Eyes: Pupils equal, round and reactive to light. Sclera nonicteric. ENT: Pharynx normal. Moist mucous membranes. Neck: Normal inspection. Neck supple. CVS: Normal heart rate and rhythm. Pulses normal. Respiratory: No respiratory distress. Breath sounds normal. Abdomen: Soft and tender to the left upper and left lower quadrants. No rigidity or rebound. No pulsatile masses. No visible physical deformity or bruising noted. Skin: Skin warm and dry. Normal skin color. Normal skin turgor. Extremities: No lower extremity edema. Moves all extremities against resistance. Gait is well balanced well coordinated. Neuro: No motor deficit. No sensory deficit. Cranial nerves 2-12 intact Course Course Course Narrative: 25-year-old female presents with left abdominal pain radiating to her groin. States the pain started while she was on the elliptical yesterday and the pain has gradually increased. Physical exam does not indicate any rigidity, rebound tenderness, negative [place] however there is tenderness to the left upper left lower quadrants. Has positive CVA tenderness to the left side. No history of kidney stones or abdominal surgery in the past. Stated to have a negative home test. Will order labs, urinalysis and CT of abdomen pelvis. If test comes back positive we will investigate possible ectopic. 8:30 p.m. labs are unremarkable. test is negative. 9:[address] scan of abdomen pelvis is negative for acute findings requiring emergent intervention. Discussion with patient regarding plan of care, discharge home with supportive measures alternate Tylenol and Motrin. Could be a muscular skeletal strain. Patient verbalized understanding of and agrees to plan of care discharge home. Medical Decision Making Differential Diagnosis Differential Diagnosis: Muscular skeletal strain, colitis, kidney stone, UTI, pyelo Medical Records Medical records reviewed: Yes I reviewed the patient's medical records. Lab Data Lab results reviewed: Yes I reviewed the patient's lab results. Result diagrams: 05/16/21 16:32 05/16/21 16:32 Labs: Lab Results 05/16/21 05/16/21 05/16/21 Range/Units 16:32 16:32 16:39 WBC 6.4 (4.8-10.8) X10*3/uL RBC 4.87 (4.20-5.50) X10*6/uL Hgb 11.5 L (12.0-16.0) g/dl Hct 38.0 (37.0-47.0) % MCV 78.0 L (80.0-98.0) fL MCH 23.6 L (27.0-33.0) pg MCHC 30.3 L (31.0-35.0) g/dl RDW 15.7 (11.0-16.0) % Plt Count 222 (160-400) X10*3/uL MPV 11.3 (9.4-12.3) fL Immature Gran % (Auto) 0.2 (0.0-0.4) % Neut % (Auto) 61.4 (45-73) % Lymph % (Auto) 28.2 (20-40) % Mobile % (Auto) 8.4 (2-11) % Eos % (Auto) 1.2 (0-4) % Baso % (Auto) 0.6 (0-2) % Lymph # (Auto) 1.8 (1.2-4.9) X10*3/uL Mobile # (Auto) 0.5 (0.1-1.2) X10*3/uL Eos # (Auto) 0.1 (0.0-0.4) X10*3/uL Baso # (Auto) 0.0 (0.0-0.2) X10*3/uL Abs Immat Gran (auto) 0.01 (0.00-0.03) X10*3/uL Absolute Neuts (auto) 3.9 (2.0-8.3) x10*3/uL Absolute Nucleated RBC 0.000 (0.0-0.012) X10*3/uL Nucleated RBC % (auto) 0.0 (0.0-0.2) /100WBC Sodium 139 (135-145) mmol/L Potassium 4.3 (3.3-5.1) mmol/L Chloride 106 (96-108) mmol/L Carbon Dioxide 27 (22-29) mmol/L Anion Gap 10 L (12-20) BUN 9 (9-16) mg/dL Creatinine 0.76 (0.5-1.4) mg/dL Estim Creat Clear Calc 120.3 Estimated GFR > 60 Random Glucose 93 (60-115) mg/dL Calcium 9.7 (8.4-10.2) mg/dL Urine Color YELLOW Urine Appearance CLEAR Urine pH 7.0 (5.0-8.0) Ur Specific [place] 1.020 (1.005-1.025) Urine Protein NEG (NEG-TRACE) MG/DL Urine Glucose (UA) NEG (NEG) MG/DL Urine Ketones 15 (NEG) MG/DL Urine Blood NEG (NEG) Urine Nitrite NEG (NEG) Ur Leukocyte Esterase NEG (NEG) Urine RBC 1-4 (0) /HPF Urine WBC 0-2 (0-4) /HPF Ur Squamous Epith Cells TRACE /LPF Urine Bacteria TRACE /LPF Urine Test (NEGATIVE) 05/16/21 Range/Units 18:04 WBC (4.8-10.8) X10*3/uL RBC (4.20-5.50) X10*6/uL Hgb (12.0-16.0) g/dl Hct (37.0-47.0) % MCV (80.0-98.0) fL MCH (27.0-33.0) pg MCHC (31.0-35.0) g/dl RDW (11.0-16.0) % Plt Count (160-400) X10*3/uL MPV (9.4-12.3) fL Immature Gran % (Auto) (0.0-0.4) % Neut % (Auto) (45-73) % Lymph % (Auto) (20-40) % Mobile % (Auto) (2-11) % Eos % (Auto) (0-4) % Baso % (Auto) (0-2) % Lymph # (Auto) (1.2-4.9) X10*3/uL Mobile # (Auto) (0.1-1.2) X10*3/uL Eos # (Auto) (0.0-0.4) X10*3/uL Baso # (Auto) (0.0-0.2) X10*3/uL Abs Immat Gran (auto) (0.00-0.03) X10*3/uL Absolute Neuts (auto) (2.0-8.3) x10*3/uL Absolute Nucleated RBC (0.0-0.012) X10*3/uL Nucleated RBC % (auto) (0.0-0.2) /100WBC Sodium (135-145) mmol/L Potassium (3.3-5.1) mmol/L Chloride (96-108) mmol/L Carbon Dioxide (22-29) mmol/L Anion Gap (12-20) BUN (9-16) mg/dL Creatinine (0.5-1.4) mg/dL Estim Creat Clear Calc Estimated GFR Random Glucose (60-115) mg/dL Calcium (8.4-10.2) mg/dL Urine Color Urine Appearance Urine pH (5.0-8.0) Ur Specific [place] (1.005-1.025) Urine Protein (NEG-TRACE) MG/DL Urine Glucose (UA) (NEG) MG/DL Urine Ketones (NEG) MG/DL Urine Blood (NEG) Urine Nitrite (NEG) Ur Leukocyte Esterase (NEG) Urine RBC (0) /HPF Urine WBC (0-4) /HPF Ur Squamous Epith Cells /LPF Urine Bacteria /LPF Urine Test NEGATIVE (NEGATIVE) Imaging Data CT abdomen pelvis: Attestation: I personally reviewed and interpreted this imaging study as follows: Radiologist's impression: EXAMINATION: CT ABDOMEN AND PELVIS WITH CONTRAST? CLINICAL INFORMATION: Left flank pain.? COMPARISON: CT abdomen/pelvis dated from 12/25/2020.? TECHNIQUE: Multidetector volumetric images were obtained from the superior aspect of the liver through the pubic symphysis following administration 85 mL of Omnipaque 350 intravenous contrast. Sagittal and coronal reformatted images were obtained on the technologist's workstation.? Oral contrast: No This CT examination was performed using dose optimization techniques as appropriate, variously including the following: *Automated exposure control *Adjustment of mA and/or kV according to patient size (this includes techniques or standardized protocols for targeted exams where dose is matched to indication/reason for exam; i.e. extremities or head) *Use of iterative reconstruction technique DLP: 620 mGy-cm FINDINGS: LUNG BASES: The visualized lung bases are unremarkable.? LIVER, GALLBLADDER, AND BILIARY TREE: The liver is normal in size, shape, and attenuation. No focal hepatic lesion or biliary ductal dilatation is present. The gallbladder is unremarkable with no evidence of radiopaque gallstones, gallbladder wall thickening, or obvious pericholecystic inflammatory changes.? PANCREAS: Unremarkable.? SPLEEN: Unremarkable.? ADRENAL GLANDS: Unremarkable.? KIDNEYS AND URETERS: The kidneys are normal in size, shape, and attenuation. No hydronephrosis, hydroureter, or calculi seen. No perinephric stranding. ? BLADDER: Unremarkable.? GASTROINTESTINAL TRACT: The stomach and the small bowel are nondilated. Normal appendix. Mild colonic diverticulosis without associated inflammatory changes. The distal colon is underdistended limiting assessment of wall thickening and mural abnormalities.? ABDOMINAL WALL: No significant hernia is appreciated.? LYMPH NODES: A few prominent mesenteric lymph nodes are not significantly changed and of uncertain significance. No lymphadenopathy by size criteria. VASCULAR: Unremarkable. PELVIC VISCERA: Functional follicles in both ovaries. Trace amount of free fluid, likely physiologic.? OSSEOUS STRUCTURES: No acute or aggressive osseous abnormalities. Partial L5 sacralization.? CT/CT abdomen pelvis w con IMPRESSION: No acute abdominal or pelvic abnormalities to explain the patient's symptoms. ? Mild colonic diverticulosis without evidence of acute diverticulitis. Discharge Plan Discharge Clinical Impression: Abdominal pain Qualifiers: Abdominal location: generalized Qualified Code(s): R10.84 - Generalized abdominal pain Patient Disposition: Home, Self-Care Instructions: Abdominal Pain (ED) Additional Instructions: You were evaluated for abdominal pain. CT scan of abdomen and pelvis is negative for acute findings requiring emergent intervention. Blood work is negative. test is negative, urinalysis is negative. This could possibly be a muscle strain. Please take Tylenol 650 mg every 6 hours as needed and alternate Motrin 600 mg every 6 hours as needed. Please write down what time he take these medications to prevent accidental overdose. Thank you for choosing this emergency department for evaluation. Please follow-up with primary care physician as needed. Return to the emergency department for any new, concerning, or worsening symptoms. Prescriptions: No Action nitrofurantoin monohyd/m-cryst [Macrobid] 100 mg capsule 100 mg PO Q12H 5 Days Qty: 10 RF: 0 cefixime 400 mg capsule 400 mg PO DAILY 7 Days Qty: 7 RF: 0 pyridoxine (vitamin B6) 25 mg tablet 25 mg PO TID 30 Days Qty: 90 RF: 0 pantoprazole [Protonix] 40 mg tablet,delayed release (DR/EC) 40 mg PO DAILY Qty: 20 RF: 0 Interventions: ED Discharge Assessment Last Done: 05/16/21 21:24 Discharge Date/Time: 05/16/21 21:25
[2021-05-16 17:52] VITALS: BP 107/59; PULSE 73; RESP 16; TEMP 37.2; O2SAT 99
[2021-05-16] MEDS: Acetaminophen 325 MG TABLET 650 MG PO (17:55)
[2021-05-16 18:39] LABS: UPreg QC Valid YES; Urine Pregnancy NEGATIVE (NEGATIVE)
--- NOTE | 2021-05-16 19:19 | PC.NURSE ---
Report taken from Catherine REESE. This RN resuming care. Pt resting comfortably in bed at this time, reports some relief of pain, states pain decreased to a 7/10. Pt aware of plan to await CT. VSS. Continue to monitor.
[2021-05-16 19:25] VITALS: BP 102/52; PULSE 59; RESP 16; TEMP 36.3; O2SAT 100
[2021-05-16] MEDS: iohexoL 350 MG/ML 100 ML INFUS..BTL IV (20:02)
== END 2021-05-16 21:25 | disposition home or self-care (01) ==
PROVIDERS: Nurse Practitioner Family; Emergency Provider Emergency Medicine
DX: R10.30 Lower abdominal pain, unspecified (principal); Z79.899 Other long term (current) drug therapy
CPT/HCPCS: 36415; 74177; 80048; 81001; 81025; 85025; 99284; Q9967

== ENCOUNTER 2022-06-16 21:08 | Emergency (ER) | payer OTHER, SELFPAY ==
[2022-06-16 21:14] VITALS: BP 144/55; PULSE 84; RESP 16; TEMP 36.7; O2SAT 98; BMI 25.8
[2022-06-16] MEDS: 0.9 % Sodium Chloride 1,000 ML 999 ML IV (21:38)
[2022-06-16] MEDS: Ketorolac Tromethamine 15 MG/ML VIAL IVPUSH (21:38)
[2022-06-16] MEDS: ondansetron HCL 4 MG/2 ML VIAL IVPUSH (21:38)
--- NOTE | 2022-06-16 21:39 | ED_ITS ---
HPI - Nausea/Vomiting/Diarrhea General Chief complaint: Abdominal Pain Stated complaint: vomiting Time Seen by Provider: 06/16/22 21:25 Source: patient Mode of arrival: ambulatory Limitations: no limitations History of Present Illness HPI Narrative: 26-year-old female who presents emergency department for evaluation of nausea, vomiting, diarrhea and abdominal pain. Patient states that she has a history of B12 deficiency and gets weekly B12 shots. She states she got her B12 shot yesterday felt fine. She states this morning at 03:00 hours she developed nausea and vomiting. She states she has vomited more than 12 times. She also states that she is having abdominal pain. She describes the pain as a cramping sensation located diffusely throughout her abdomen. Pain is constant and is 6/10 at its worst. Patient states she had 1 episode of diarrheal stool. She had no blood in the emesis or the stool. The patient has not been vaccinated against COVID-19 or influenza. She denied fever, chills, rhinorrhea, sore throat, cough, chest pain, shortness of breath, dyspnea on exertion. She states she is feeling fatigued and weak. She denied frequency, urgency or dysuria. Related Data Previous Rx's Medication Instructions Recorded cefixime 400 mg capsule 400 mg PO DAILY 7 days #7 caps 10/08/20 pyridoxine (vitamin B6) 25 mg 25 mg PO TID 30 days #90 tabs 10/08/20 tablet nitrofurantoin 100 mg PO Q12H 5 days #10 caps 12/25/20 monohydrate/macrocrystals 100 mg capsule (Macrobid) pantoprazole 40 mg tablet,delayed 40 mg PO DAILY #20 tabs 03/15/21 release (Protonix) promethazine 25 mg tablet 25 mg PO Q6H PRN nausea and 06/17/22 vomiting #14 tabs Allergies Allergy/AdvReac Type Severity Reaction Status Date / Time amoxicillin [AMOXICILLIN] Allergy Severe RESPIRATORY Verified 05/16/21 16:23 ARREST, anaphylaxis penicillin V Allergy Unknown Anaphylaxis Verified 05/16/21 16:23 Penicillins [PENICILLINS] Allergy Unknown UNKNOWN Verified 05/16/21 16:23 Sulfa (Sulfonamide Allergy Unknown UNK, Verified 05/16/21 16:23 Antibiotics) stomach [SULFA (SULFONAMIDE upset ANTIBIOTICS)] sulfamethoxazole AdvReac Intermediate NAUSEA & Verified 05/16/21 16:23 [From BACTRIM] VOMITING trimethoprim [From BACTRIM] AdvReac Intermediate NAUSEA & Verified 05/16/21 16:23 VOMITING Review of Systems Review of Systems: Yes all other systems are reviewed and are negative [facility] Past Medical History [facility] Narrative: Past medical history: B12 deficiency, H pylori. Past surgical history: None. Social history: She denies tobacco, alcohol drug use. Medical History Asthma Hyperemesis Social History Social History Alcohol intake: never Patient Tobacco Use Status: Never used Tobacco Smoked in Last 30 Days: No Use of substances other than those prescribed or required for medical reasons: No Advance Directives: No Advance Directives Information Provided: Yes Patient : No Physical Exam Vital Signs: Vital Signs: Last Vital Signs Temp 98.8 F 06/16/22 23:46 Pulse 69 06/16/22 23:46 Resp 12 06/16/22 23:46 BP 106/46 L 06/16/22 23:46 Pulse Ox 98 06/16/22 23:46 O2 Del Method 06/16/22 23:46 BMI result Body Mass Index 25.8 Const: General: cooperative and no acute distress Orientation/consciousness: oriented to person and oriented to place Limitations: no limitations HEENT: Head: Yes normal to inspection, Yes normocephalic and Yes atraumatic Ears: external ears normal General nose exam: Normal external nose present Face and sinus: Yes normal facial exam Mouth: Normal oral and palatal mucosa present Throat: Yes posterior oropharynx normal Eyes: General: appearance normal, both eyes and all related structures Neck: Neck: Yes normal visual inspection, Yes no lymphadenopathy, Yes trachea midline and Yes supple Chest: Chest palpation & inspection: normal inspection of the chest and normal palpation of entire chest wall Resp: Effort & Inspection: normal respiratory effort and able to speak in com plete sentences Auscultation: clear to auscultation bilaterally Cardio: Rate: regular rate Rhythm: regular rhythm Heart sounds: S1 normal heart sound present, S2 normal heart sound present and no murmurs GI: Inspection: Yes normal to inspection Palpation (GI): Soft to palpation, Tenderness to palpation present (GI) (Diffuse abdominal tenderness) and no guarding Auscultation: normal bowel sounds : General: Yes no CVA tenderness Back/Spine/Pelvis: Back: no CVA tenderness Neuro: General: oriented to person and oriented to place Cognition (Neuro): normal cognition Motor exam (neuro): 5/5 motor strength present throughout Extrem: General: Yes normal to inspection Psych: Appearance: grossly normal Speech and movement: Normal speech and movement present Affect: normal affect Attitude: cooperative Medications Administered Generic Name Dose Route Start Last Admin Trade Name Freq PRN Reason Stop Dose Admin Sodium Chloride 1,000 mls @ 999 mls/hr 06/17/22 00:09 06/17/22 00:27 Ns IV 06/17/22 01:09 999 mls/hr .Q1H1M STA Administration Discontinued Medications Generic Name Dose Route Start Last Admin Trade Name Freq PRN Reason Stop Dose Admin Sodium Chloride 1,000 mls @ 999 mls/hr 06/16/22 21:33 06/16/22 22:58 Ns IV 06/16/22 22:33 Infused .Q1H1M STA Infusion Promethazine HCl 12.5 mg/ 50.5 mls @ 202 mls/hr 06/17/22 00:09 06/17/22 00:28 Sodium Chloride IV 06/17/22 00:10 202 mls/hr ONCE STA Administration Ketorolac Tromethamine 15 mg 06/16/22 21:33 06/16/22 21:38 Ketorolac Tromethamine 15 Mg/Ml Vial IVPUSH 06/16/22 21:34 15 mg ONCE STA Administration Ondansetron HCl 4 mg 06/16/22 21:33 06/16/22 21:38 Ondansetron Hcl 4 Mg/2 Ml Vial IVPUSH 06/16/22 21:34 4 mg ONCE ONE Administration Medical Decision Making Medical Decision Making MDM Narrative: 26-year-old female who presents emergency department for evaluation of nausea, vomiting, abdominal pain and diarrhea with symptoms starting this morning at 03:00 hours. Patient states she has vomited over 12 times. She has had 1 episode of diarrheal stool. She complains of diffuse abdominal cramping which is constant is 6/10 at its worst. Vital signs were normal. Abdominal exam revealed diffuse tenderness. I ordered a CBC, CMP, lipase, urinalysis, urine test, COVID-19 and influenza test. Patient was ordered to get normal saline IV x1 L, Toradol 15 mg IV and Zofran 4 mg IV. 0010: My independent interpretation patient's laboratory evaluation is as follows: CBC was normal. CMP was normal. Lipase was not elevated. COVID-19 and influenza were negative. Urinalysis was a non clean catch specimen. Urine test was negative. Patient states that her abdominal pain improved after the above treatment but she still is having nausea therefore she was ordered to get Phenergan 12.5 mg IV. She states that she still feels weak and a little lightheaded despite receiving 1 L of normal saline therefore she I ordered a 2 L of normal saline. 0105: The patient is feeling significantly better. Patient's presentation symptoms are consistent with an acute viral syndrome. Patient will be discharged home with prescription for Phenergan 25 mg every 6 hours as needed for nausea and vomiting. She was given printed and verbal instructions and discharged home. Differential Diagnosis Differential diagnosis includes was not limited to acute viral syndrome, gas tritis, COVID-19, influenza, RSV Lab Data [facility] Lab Attestation statement: I reviewed the patient's lab results. Please see [facility] 06/16/22 21:36 06/16/22 21:55 Labs: Lab Results 06/16/22 06/16/22 06/16/22 Range/Units 21:36 21:40 21:40 WBC 6.8 (4.8-10.8) X10*3/uL RBC 5.42 (4.20-5.50) X10*6/uL Hgb 13.9 D (12.0-16.0) g/dl Hct 43.7 (37.0-47.0) % MCV 80.6 (80.0-98.0) fL MCH 25.6 L (27.0-33.0) pg MCHC 31.8 (31.0-35.0) g/dl RDW 14.3 (11.0-16.0) % Plt Count 196 (160-400) X10*3/uL MPV 10.9 (9.4-12.3) fL Absolute Nucleated RBC 0.000 (0.0-0.012) X10*3/uL Nucleated RBC % (auto) 0.0 (0.0-0.2) /100WBC Sodium (135-145) mmol/L Potassium (3.3-5.1) mmol/L Chloride (96-108) mmol/L Carbon Dioxide (22-29) mmol/L Anion Gap (12-20) BUN (9-16) mg/dL Creatinine (0.5-1.4) mg/dL Estim Creat Clear Calc Estimated GFR Random Glucose (60-115) mg/dL Calcium (8.4-10.2) mg/dL Total Bilirubin (0.0-1.0) mg/dL AST (5-31) U/L ALT (0-31) U/L Alkaline Phosphatase (39-117) U/L Total Protein (6.5-8.0) g/dL Albumin (3.5-5.0) g/dL Lipase (8-78) U/L Urine Color Urine Appearance Urine pH (5.0-9.0) Ur Specific [place] (1.005-1.025) Urine Protein (Neg-Trace) mg/dL Urine Glucose (UA) (Negative) mg/dL Urine Ketones (Negative) mg/dL Urine Blood (Negative) Urine Nitrite (Negative) Ur Leukocyte Esterase (Negative) Urine RBC (0-2) /HPF Urine WBC (0-5) /HPF Ur Squamous Epith Cells (0-2) /HPF Urine Bacteria (None Seen) Hyaline Casts (0-2) /LPF Urine Test (NEGATIVE) COVID-19 (WOODY) Negative (Negative) COVID-19 Clin Com See Note Influenza Type A (ERON) Negative (Negative) Influenza Type B (ERON) Negative (Negative) Influenza A & B Note See Note 06/16/22 06/16/22 06/16/22 Range/Units 21:55 21:55 23:04 WBC (4.8-10.8) X10*3/uL RBC (4.20-5.50) X10*6/uL Hgb (12.0-16.0) g/dl Hct (37.0-47.0) % MCV (80.0-98.0) fL MCH (27.0-33.0) pg MCHC (31.0-35.0) g/dl RDW (11.0-16.0) % Plt Count (160-400) X10*3/uL MPV (9.4-12.3) fL Absolute Nucleated RBC (0.0-0.012) X10*3/uL Nucleated RBC % (auto) (0.0-0.2) /100WBC Sodium 140 (135-145) mmol/L Potassium 3.5 (3.3-5.1) mmol/L Chloride 108 (96-108) mmol/L Carbon Dioxide 23 (22-29) mmol/L Anion Gap 13 (12-20) BUN 10 (9-16) mg/dL Creatinine 0.84 (0.5-1.4) mg/dL Estim Creat Clear Calc 103.4 Estimated GFR > 60 Random Glucose 100 (60-115) mg/dL Calcium 8.5 D (8.4-10.2) mg/dL Total Bilirubin 2.0 H (0.0-1.0) mg/dL AST 14 (5-31) U/L ALT 10 (0-31) U/L Alkaline Phosphatase 31 L (39-117) U/L Total Protein 6.2 L (6.5-8.0) g/dL Albumin 4.0 (3.5-5.0) g/dL Lipase 15 15 (8-78) U/L Urine Color Dark Yellow Urine Appearance Clear Urine pH 5.5 (5.0-9.0) Ur Specific [place] >= 1.030 H (1.005-1.025) Urine Protein 30 (1+) H (Neg-Trace) mg/dL Urine Glucose (UA) Negative (Negative) mg/dL Urine Ketones 80 (Negative) mg/dL Urine Blood Negative (Negative) Urine Nitrite Negative (Negative) Ur Leukocyte Esterase Trace H (Negative) Urine RBC 6-10 H (0-2) /HPF Urine WBC 0-5 (0-5) /HPF Ur Squamous Epith Cells 6-10 (0-2) /HPF Urine Bacteria 1+ (None Seen) Hyaline Casts 0-2 (0-2) /LPF Urine Test (NEGATIVE) COVID-19 (WOODY) (Negative) COVID-19 Clin Com Influenza Type A (ERON) (Negative) Influenza Type B (ERON) (Negative) Influenza A & B Note 06/16/22 Range/Units 23:04 WBC (4.8-10.8) X10*3/uL RBC (4.20-5.50) X10*6/uL Hgb (12.0-16.0) g/dl Hct (37.0-47.0) % MCV (80.0-98.0) fL MCH (27.0-33.0) pg MCHC (31.0-35.0) g/dl RDW (11.0-16.0) % Plt Count (160-400) X10*3/uL MPV (9.4-12.3) fL Absolute Nucleated RBC (0.0-0.012) X10*3/uL Nucleated RBC % (auto) (0.0-0.2) /100WBC Sodium (135-145) mmol/L Potassium (3.3-5.1) mmol/L Chloride (96-108) mmol/L Carbon Dioxide (22-29) mmol/L Anion Gap (12-20) BUN (9-16) mg/dL Creatinine (0.5-1.4) mg/dL Estim Creat Clear Calc Estimated GFR Random Glucose (60-115) mg/dL Calcium (8.4-10.2) mg/dL Total Bilirubin (0.0-1.0) mg/dL AST (5-31) U/L ALT (0-31) U/L Alkaline Phosphatase (39-117) U/L Total Protein (6.5-8.0) g/dL Albumin (3.5-5.0) g/dL Lipase (8-78) U/L Urine Color Urine Appearance Urine pH (5.0-9.0) Ur Specific [place] (1.005-1.025) Urine Protein (Neg-Trace) mg/dL Urine Glucose (UA) (Negative) mg/dL Urine Ketones (Negative) mg/dL Urine Blood (Negative) Urine Nitrite (Negative) Ur Leukocyte Esterase (Negative) Urine RBC (0-2) /HPF Urine WBC (0-5) /HPF Ur Squamous Epith Cells (0-2) /HPF Urine Bacteria (None Seen) Hyaline Casts (0-2) /LPF Urine Test NEGATIVE (NEGATIVE) COVID-19 (WOODY) (Negative) COVID-19 Clin Com Influenza Type A (ERON) (Negative) Influenza Type B (ERON) (Negative) Influenza A & B Note Discharge Plan Discharge Clinical Impression: Acute viral syndrome, Dehydration Nausea & vomiting Qualifiers: Vomiting type: unspecified Qualified Code(s): R11.2 - Nausea with vomiting, unspecified Patient Disposition: Home, Self-Care Instructions: Viral Syndrome (ED) Additional Instructions: Your blood work was unremarkable. Your urine was not consistent with a urinary tract infection. Your COVID-19 and influenza tests were negative. Your symptoms are caused by a virus Take ibuprofen 200 mg pills, 3 pills every 6 hours as needed for pain. Take Tylenol (acetaminophen) 500 mg pills, 2 pills every 4 to 6 hours as needed for pain. Insert Phenergan instructions For the next 24 hours, stay on a ABHI diet (bananas, rice, applesauce, tea and toast). Follow-up with your doctor in 2 days. Please return to the emergency department if your symptoms get worse or if you develop any symptoms that are concerning to you. Prescriptions: New promethazine 25 mg tablet 25 mg PO Q6H PRN (Reason: nausea and vomiting) Qty: 14 0RF No Action nitrofurantoin monohyd/m-cryst [Macrobid] 100 mg capsule 100 mg PO Q12H 5 Days Qty: 10 0RF Rx Instructions: must administer with a meal/food cefixime 400 mg capsule 400 mg PO DAILY 7 Days Qty: 7 0RF pyridoxine (vitamin B6) 25 mg tablet 25 mg PO TID 30 Days Qty: 90 0RF pantoprazole [Protonix] 40 mg tablet,delayed release (DR/EC) 40 mg PO DAILY Qty: 20 0RF
[2022-06-16 21:40] LABS: Hematocrit 43.7 % (37.0-47.0); Hemoglobin 13.9 g/dl (12.0-16.0); Mean Corpuscular HGB Conc 31.8 g/dl (31.0-35.0); Mean Corpuscular Hemoglobin 25.6 pg (27.0-33.0); Mean Corpuscular Volume 80.6 fL (80.0-98.0); Mean Platelet Volume 10.9 fL (9.4-12.3); Platelet Count 196 X10*3/uL (160-400); Red Blood Count 5.42 X10*6/uL (4.20-5.50); Red Cell Distribution Width 14.3 % (11.0-16.0); White Blood Count 6.8 X10*3/uL (4.8-10.8)
[2022-06-16 22:22] LABS: Lipase 15 U/L (8-78)
[2022-06-16 22:24] LABS: Alanine Aminotransferase 10 U/L (0-31); Alkaline Phosphatase 31 U/L (39-117); Anion Gap 13 (12-20); Aspartate Amino Transferase 14 U/L (5-31); Blood Urea Nitrogen 10 mg/dL (9-16); Calcium 8.5 mg/dL (8.4-10.2); Carbon Dioxide 23 mmol/L (22-29); Chloride 108 mmol/L (96-108); Creatinine Clr Calc Pharmacy 103.4; Estimated Glomerular Filt Rate > 60; Glucose Random 100 mg/dL (60-115); Lipase 15 U/L (8-78); Potassium 3.5 mmol/L (3.3-5.1); Sodium 140 mmol/L (135-145); Total Protein 6.2 g/dL (6.5-8.0)
[2022-06-16 23:01] LABS: IDNOW Serial# BCCEAD1C
[2022-06-16 23:02] LABS: COVID-19 Test Negative (Negative); IDNOW Serial# 16C4AD1C; Influenza A Negative (Negative); Influenza B2 Negative (Negative)
[2022-06-16 23:36] LABS: Appearance Urine Clear; Color Urine Dark Yellow; Glucose Urine UA Negative (Negative); Leukocyte Esterase Urine Trace (Negative); Nitrite Urine Negative (Negative); PH 5.5 (5.0-9.0); Specific Gravity - Urine >= 1.030 (1.005-1.025); UMIC TRIGGER UACC YES; Urine Blood Negative (Negative); Urine Ketones 80 mg/dL (Negative); Urine Protein 30 (1+) mg/dL (Neg-Trace)
[2022-06-16 23:38] LABS: UPreg QC Valid YES; Urine Pregnancy NEGATIVE (NEGATIVE)
[2022-06-16 23:46] VITALS: BP 106/46; PULSE 69; RESP 12; TEMP 37.1; O2SAT 98
[2022-06-16 23:50] LABS: Bacteria Urine 1+ (None Seen); Hyaline Casts Urine 0-2 /LPF (0-2); WBC Urine 0-5 /HPF (0-5)
[2022-06-17] MEDS: 0.9 % Sodium Chloride 1,000 ML 999 ML IV (00:27)
--- NOTE | 2022-06-17 02:10 | PC.NURSE ---
IV line removed. Pt tolerated well. Discharge instructions reviewed with pt. Pt verbalizes understanding.
== END 2022-06-17 02:10 | disposition home or self-care (01) ==
PROVIDERS: Emergency Provider Emergency Medicine Emergency Medical Services
DX: B34.9 Viral infection, unspecified (principal); R11.2 Nausea with vomiting, unspecified; E86.0 Dehydration; R10.9 Unspecified abdominal pain; Z20.822 Contact with and (suspected) exposure to COVID-19; J45.909 Unspecified asthma, uncomplicated; Z79.899 Other long term (current) drug therapy
CPT/HCPCS: 36415; 80053; 81001; 81025; 83690; 85027; 87502; 87635; 96361; 96374; 96375; 99284; J1885; J2405; J2550

== ENCOUNTER 2023-05-06 11:55 | Emergency (ER) | payer MEDICAID, SELFPAY ==
--- NOTE | ~2023-05-06 | XR_ITS ---
EXAMINATION: XR RIBS, LEFT CLINICAL INFORMATION: Anterolateral left lower rib pain without trauma COMPARISON: Chest radiograph 03/15/2021 TECHNIQUE: Single view chest and 4 views of the left ribs were obtained. FINDINGS: Lungs are clear. No consolidation, pneumothorax, or pleural effusion. The cardiomediastinal silhouette and pulmonary vasculature are normal. Osseous structures are unremarkable. Ribs are intact. No fractures are identified. XR/XR ribs LT min 3V w CXR1V IMPRESSION: Unremarkable examination.
--- NOTE | 2023-05-06 12:05 | ED_ITS ---
HPI - General Adult General Chief complaint: General Medical Stated complaint: L rib pain 2x months Time Seen by Provider: 05/06/23 13:03 Source: patient Mode of arrival: ambulatory Limitations: no limitations History of Present Illness HPI narrative: 27 year-old assigned at female with vitamin B12 anemia arrives to emergency department with complaint of left rib pain for the past month since March 2023 which has worsened since yesterday on 05/05/2023. She states on 05/05/2023 she felt a sharp pain which brought her to the ED. She feels uncomfortable when she moves it. She has taken no medications to alleviate the pain. She denies any trauma or history of falls. She states that she lifts heavy weights in the gym. The patient denies fever, chills, night sweats, loss of vision, blurry vision, double vision, changes in vision, lightheadedness, dizziness, palpitations, shortness of breath, trouble breathing, cough, abdominal pain, nausea, vomiting, diarrhea, changes in bowel movements, melena and hematochezia, and changes in urination. Onset (ago): month(s) (1) Location: chest (ribs) Radiation: non-radiation Quality: sharp Relieving factors: none Exacerbating factors: movement Associated symptoms: denies other symptoms Treatments prior to arrival: none Related Data Previous Rx's Medication Instructions Recorded cefixime 400 mg capsule 400 mg PO DAILY 7 days #7 caps 10/08/20 pyridoxine (vitamin B6) 25 mg 25 mg PO TID 30 days #90 tabs 10/08/20 tablet nitrofurantoin 100 mg PO Q12H 5 days #10 caps 12/25/20 monohydrate/macrocrystals 100 mg capsule (Macrobid) pantoprazole 40 mg tablet,delayed 40 mg PO DAILY #20 tabs 03/15/21 release (Protonix) promethazine 25 mg tablet 25 mg PO Q6H PRN nausea and 06/17/22 vomiting #14 tabs Allergies Allergy/AdvReac Type Severity Reaction Status Date / Time Sulfa (Sulfonamide Allergy Unknown UNK, Verified 05/06/23 12:06 Antibiotics) stomach [SULFA (SULFONAMIDE upset ANTIBIOTICS)] sulfamethoxazole AdvReac Intermediate NAUSEA & Verified 05/06/23 12:06 [From BACTRIM] VOMITING trimethoprim [From BACTRIM] AdvReac Intermediate NAUSEA & Verified 05/06/23 12:06 VOMITING Review of Systems Constitutional: Constitutional: Reports no additional constitutional complaints, Denies chills, Denies fever(s) and Denies night sweats Eyes: Eyes: Reports no additional eye complaints, Denies blurry vision, Denies change in vision, Denies diplopia, Denies eye discharge, Denies loss of vision and Denies eye pain ENT: Denies dizziness Cardiovascular: Cardiovascular: Reports no additional cardiovascular complaints, Denies chest pain, Denies lightheadedness, Denies Loss of Conscio usness and Denies dyspnea Respiratory: Respiratory: Reports no additional respiratory complaints and Denies dyspnea Gastrointestinal: Gastrointestinal: Reports no additional gastrointestinal complaints, Denies abdominal pain, Denies melena, Denies hematochezia, Denies change in bowel habits and Denies change in stool character Genitourinary: Genitourinary: Denies hematuria, Denies urinary frequency, Denies dysuria, Denies urinary incontinence, Denies urinary hesitancy and Denies urinary urgency Musculoskeletal: Musculoskeletal: Reports no additional musculoskeletal complaints, Denies numbness and Denies tingling Comments: left sided chest wall pain Neurologic: Denies dizziness, Denies loss of vision, Denies numbness and Denies tingling Psychiatric: Psychiatric: Reports no additional psychiatric complaints Endocrine: Endocrine: Reports no additional endocrine complaints Hematologic/Lymphatic: Hematologic/Lymphatic: Reports no additional hematologic/lymphatic complaints Allergic/Immunologic: Allergic/Immunologic: Reports no additional allergic/immunologic complaints PMFSH Past Medical History Attestation statement: The following information was validated with the patient. Source: old records reviewed and nursing notes reviewed Onset Date is defined in the Problem List Problems that require an onset date and time if occurred within 24 hrs of arrival to the ED Aortic Dissection and Rupture; Neurologic impairment; Cardiopulmonary Arrest; Endotracheal Intubation; Insertion or Replacement of Mechanical Circulatory Assist Device Medical History Asthma Hyperemesis Social History Social History Alcohol intake: never Patient Tobacco Use Status: Never used Tobacco Advance Directives: No Advance Directives Information Provided: No Physical Exam ED Vital Signs: Vital Signs - 24 hr 05/06/23 12:07 Temperature 97.4 F Pulse Rate 74 Respiratory Rate 16 Blood Pressure 112/67 Pulse Oximetry 99 Oxygen Delivery Method Room Air BMI result Body Mass Index 26.6 Const General: cooperative, no acute distress, alert and awake Nutritional Appearance: well nourished Orientation/consciousness: patient oriented x3 Limitations: no limitations HENMT Head: Yes normal to inspection and Yes atraumatic Ears: hearing grossly normal bilaterally and external ears normal General nose exam: Normal external nose present, no nasal discharge noted and no epistaxis Face and sinus: Yes normal facial exam, No abrasion and No laceration Mouth: Normal oral and palatal mucosa present, no drooling and no muffled voice Eyes General: appearance normal, both eyes and all related structures Periorbital: periorbital findings normal Eyelids: Yes eyelids normal Conjunctivae: conjunctivae normal Pupils: Equal, round and reactive pupils present EOM: EOMs intact bilaterally Neck Neck: Yes normal visual inspection, Yes full ROM and Yes no lymphadenopathy Chest Other: pain with palpation of the left lower chest Chest palpation & inspection: normal inspection of the chest Resp Effort & Inspection: normal respiratory effort and able to speak in complete sentences Auscultation: clear to auscultation bilaterally Cardio Rate: regular rate Rhythm: regular rhythm GI Inspection: Yes normal to inspection Neuro General: patient oriented x3 and moves all extremities Cranial nerves: Yes Equal, round and reactive pupils present Cognition (Neuro): normal cognition Motor exam (neuro): 5/5 motor strength present throughout Sensory Exam: Normal double simultaneous stimulation for sensation Coordination: [id number] test normal Extrem General: Yes normal to inspection, Yes full ROM and Yes capillary refill normal Psych Appearance: grossly normal Mental Status: mental status grossly normal Affect: normal affect Attitude: cooperative Thought process: Normal thought process present Thought content: Normal thought content present Insight: Good insight present (Psych) Course Course Course Narrative: RME:?27 yo female hx of vit b12 deficiency here with intermittent atraumatic left lower rib pain x2 months, worse w/ movement. goes to the gym and lifts weights, unsure if she strained it. 09/29. +sharp pain last night, could not sleep. no radiation. not taking anything at home for this. no trauma/injury. no tobacco use. no vaping. denies fever, chills, dyspnea, chest pain, dysuria, hematuria. no cvat. no abd pain. ttp over left 8-10th anterolateral ribs plan for xr Full HPI, ROS and PE to be performed by the primary ED provider. Medications Administered Discontinued Medications Generic Name Dose Route Start Last Admin Trade Name Linda PRN Reason Stop Dose Admin Ketorolac Tromethamine 15 mg 05/06/23 13:54 05/06/23 14:05 Ketorolac Tromethamine 15 Mg/Ml Vial IM 05/06/23 13:55 15 mg ONCE ONE Administration Medical Decision Making Medical Decision Making MDM Narrative: Patient is a 27 year old assigned female at with a history of anemia presenting to the emergency department today with left sided chest wall pain. Patient's physical exam was as noted in the physical exam portion of this note. Patient's chest x-ray showed no acute process. I explained my physical exam findings as well as all test results to the patient. I answered all questions asked by the patient. I stressed the importance of the patient taking her medication as prescribed. I stressed the importance of the patient following up with her primary care provider. I stressed the importance of the patient returning to the emergency department immediately if her symptoms were to worsen or if she were to develop any dizziness, shortness of breath, difficulty breathing, chest pain, blurry vision, loss of vision, nausea, vomiting, abdominal pain, fever, chills, back pain, or any other complaints. Patient verbalized agreement and understanding with this treatment plan and discharge. Differential Diagnosis Differential Diagnoses: The differential diagnosis associated with the presentation includes Chest wall pain Costochondritis Muscle strain Muscle sprain Admission/Observation Consideration of admission/observation: Escalation of care including admission/observation considered Patient would have been admitted to the hospital had her work up had any findings where hospital admission was appropriate and her clinical presentation warranted hospital admission. Independent Interpretation I performed an independent interpretation of an: Plain X-Ray Interpretation: My interpretation is in agreement with the radiologist's impression of this imaging study. EXAMINATION: XR RIBS, LEFT CLINICAL INFORMATION: Anterolateral left lower rib pain without trauma COMPARISON: Chest radiograph 03/15/2021 TECHNIQUE: Single view chest and 4 views of the left ribs were obtained. FINDINGS: Lungs are clear. No consolidation, pneumothorax, or pleural effusion. The cardiomediastinal silhouette and pulmonary vasculature are normal. Osseous structures are unremarkable. Ribs are intact. No fractures are identified. XR/XR ribs LT min 3V w CXR1V IMPRESSION: Unremarkable examination. Dictated By: Alejandro Long MD Signed By: Electronically signed by Alejandro Long MD 05/06/23 1341 Radiology Impression Discussion of test interpretation with radiology: I have reviewed the radiologist's reading. Discharge Plan Discharge Clinical Impression: Acute costochondritis Patient Disposition: Home, Self-Care Instructions: Costochondritis (ED) Additional Instructions: Follow up with your primary care provider. Return to the emergency department immediately if your symptoms worsen or if you develop any dizziness, shortness of breath, difficulty breathing, chest pain, blurry vision, loss of vision, nausea, vomiting, abdominal pain, fever, chills, back pain, or any other complaints. Prescriptions: No Action nitrofurantoin monohyd/m-cryst [Macrobid] 100 mg capsule 100 mg PO Q12H 5 Days Qty: 10 0RF Rx Instructions: must administer with a meal/food cefixime 400 mg capsule 400 mg PO DAILY 7 Days Qty: 7 0RF pyridoxine (vitamin B6) 25 mg tablet 25 mg PO TID 30 Days Qty: 90 0RF pantoprazole [Protonix] 40 mg tablet,delayed release (DR/EC) 40 mg PO DAILY Qty: 20 0RF promethazine 25 mg tablet 25 mg PO Q6H PRN (Reason: nausea and vomiting) Qty: 14 0RF Referrals: [facility] [Provider Group] (Call to establish and follow up with a primary care provider. If you already have a primary care provider, please follow up with them.) [facility] [[facility]] (Call to establish and follow up with a primary care provider. If you already have a primary care provider, please follow up with them.) [facility] [Provider Group] (Call to establish and follow up with a primary care provider. If you already have a primary care provider, please follow up with them.) Interventions: ED Discharge Assessment Last Done: 05/06/23 14:09 Discharge Date/Time: 05/06/23 14:09 Print Language: Irish
[2023-05-06 12:07] VITALS: BP 112/67; PULSE 74; RESP 16; TEMP 36.3; O2SAT 99; BMI 26.6
[2023-05-06] MEDS: Ketorolac Tromethamine 15 MG/ML VIAL IM (14:05)
== END 2023-05-06 14:09 | disposition home or self-care (01) ==
PROVIDERS: Emergency Provider Emergency Medicine
DX: M94.0 Chondrocostal junction syndrome [Tietze] (principal)
CPT/HCPCS: 71101; 96372; 99283; 99284; J1885

== ENCOUNTER 2025-04-07 14:48 | Emergency (ER) | payer OTHER, SELFPAY ==
--- NOTE | ~2025-04-07 | CT_ITS ---
CLINICAL HISTORY: fall with head strike, headache, nausea CT head without contrast Comparison: None Findings: No intracranial mass, midline shift, hydrocephalus, or acute hemorrhage. No CT evidence of acute ischemia. Visualized paranasal sinuses and mastoid air cells normal. Orbits unremarkable. No skull fracture Impression: 1. No acute intracranial abnormalities. This document has been electronically signed by: Corky Nance MD on 04/07/2025 17:27:25
--- NOTE | ~2025-04-07 | XR_ITS ---
EXAMINATION: XR THORACIC SPINE CLINICAL INFORMATION: fall with midline tenderness COMPARISON: None available. TECHNIQUE: 3 views of the thoracic spine were obtained. FINDINGS: There is no fracture or bone destruction seen and the vertebral alignment is normal. There is no disc space narrowing. There is no abnormality of the paraspinal soft tissues. XR/XR thoracic spine 3V IMPRESSION: Unremarkable examination. Electronically signed by: Daylin Perez MD 04/07/2025 03:23 PM [facility]
--- NOTE | ~2025-04-07 | CT_ITS ---
CLINICAL HISTORY: fall neck pain CT cervical spine without contrast Comparison: None Findings: Normal limited view of the intracranial contents. Soft tissues of the neck are normal. Lung apices are normal. Normal vertebral body alignment. No fractures or dislocations. No significant degenerative change. Impression: 1. No cervical vertebral fracture or traumatic malalignment. This document has been electronically signed by: Corky Nance MD on 04/07/2025 17:26:33
[2025-04-07 14:51] VITALS: BP 119/59; PULSE 74; RESP 18; TEMP 36.6; O2SAT 98; BMI 29.0
--- NOTE | 2025-04-07 14:51 | ED_ITS ---
HPI - General Adult General Chief complaint: Head Injury Stated complaint: Fell in shower t-1, neck, back, and head pain Time Seen by Provider: 04/07/25 17:58 Source: patient, RN notes reviewed and old records reviewed Mode of arrival: ambulatory Limitations: no limitations History of Present Illness ED Provider: Lotus SMALLS narrative: 29-year-old female presents for evaluation of neck pain. Patient reports that last night she slipped while getting out of the shower She fell and struck the back of her head on the ground pain She reports mostly neck pain today worse with turning her head and lying back There was no loss of consciousness pain Denies any numbness or tingling Related Data Previous Rx's ?Medication ?Instructions ?Recorded cefixime 400 mg capsule 400 mg PO DAILY 7 days #7 ca ps 10/08/20 pyridoxine (vitamin B6) 25 mg 25 mg PO TID 30 days #90 tabs 10/08/20 tablet nitrofurantoin 100 mg PO Q12H 5 days #10 ca ps 12/25/20 monohydrate/macrocrystals 100 mg capsule (Macrobid) pantoprazole 40 mg tablet,delayed 40 mg PO DAILY #20 t abs 03/15/21 release (Protonix) promethazine 25 mg tablet 25 mg PO Q6H PRN nausea and 06/17/22 vomiting #14 tabs Allergies Allergy/AdvReac Type Severity Reaction Status Date / Time No Known Allergies Allergy Verified 04/07/25 14:53 Review of Systems Constitutional: Constitutional: Denies body ache(s), Denies chills, Denies fever(s), Denies frequent falls and Reports headache(s) ENT: Denies vertigo, Denies dizziness, Reports headache(s) and Reports neck pain Cardiovascular: Cardiovascular: Denies chest pain and Denies dyspnea on exertion Respiratory: Respiratory: Denies cough and Denies dyspnea on exertion Musculoskeletal: Musculoskeletal: Reports back pain, Denies arthralgias, Denies joint swelling, Denies limited range of motion, Reports neck pain, Denies numbness, Denies radiating pain into limb, Reports stiffness and Denies tingling Integumentary/Breasts: Skin/Breast: Denies rash Neurologic: Denies vertigo, Denies dizziness, Denies frequent falls, Reports headache(s), Denies numbness and Denies tingling PMFSH Past Medical History Medical History Asthma Hyperemesis Social History Social History Alcohol intake: never Patient Tobacco Use Status: Never used Tobacco Do you have a plan to hurt others: No Plan Physical Exam ED Vital Signs: Vital Signs - 24 hr 04/07/25 14:51 04/07/25 18:12 Temperature 98 F 98.2 F Pulse Rate 74 76 Respiratory Rate 18 18 Blood Pressure 119/59 L 120/62 Pulse Oximetry 98 98 Oxygen Delivery Method Room Air Room Air BMI result Body Mass Index 29.0 Const General: healthy appearing, comfortable, no acute distress, alert and awake Nutritional Appearance: well nourished Orientation/consciousness: patient oriented x3 HENMT Head: Yes normocephalic and Yes atraumatic Eyes Eyelids: Yes eyelids normal Conjunctivae: conjunctivae normal Sclerae: sclerae normal Corneas: corneas normal Pupils: Equal, round and reactive pupils present EOM: EOMs intact bilaterally Neck Neck: Yes full ROM Resp Effort & Inspection: normal respiratory effort, able to speak in complete sentences and not labored Skin General skin exam: elasticity normal Neuro General: patient oriented x3 Cranial nerves: Yes CN's II-XII intact bilaterally, Yes Equal, round and reactive pupils present and Yes Bilaterally intact EOM present Cognition (Neuro): normal cognition Extrem Other: Moving all extremities well without any obvious deformities Course Course Course Narrative: This is a rapid medical exam performed by Estrada So NP: Additional HPI, ROS, PE not included below will be deferred to primary provider. Patient is a 29y/o F referred to the ED from urgent care for imaging for headache, neck and back pain after a slip in the shower last night. Denies LOC. Not anticoagulated. Plan: imaging Medical Decision Making Medical Decision Making MDM Narrative: 29-year-old female presents for evaluation neck pain and headache after a fall. She has no neuro deficits, no objective findings of trauma. She appears quite well. She would have a CT scan of the brain and cervical spine ordered in triage which did not show any traumatic injuries. X-ray of the thoracic spine likewise shows no significant traumatic injuries. The patient likely has a cerv ical strain Differential Diagnosis Differential Diagnoses: The differential diagnosis associated with the presentation includes Cervical strain Contusion Intracranial hemorrhage Cervical fracture Concussion Radiology Impression Discussion of test interpretation with radiology: I have reviewed the radiologist's reading. Radiologist Impression: Findings: No intracranial mass, midline shift, hydrocephalus, or acute hemorrhage. No CT evidence of acute ischemia. Visualized paranasal sinuses and mastoid air cells normal. Orbits unremarkable. No skull fracture Impression: 1. No acute intracranial abnormalities. This document has been electronically signed by: Corky Nance MD on 04/07/2025 17:27:25 Findings: Normal limited view of the intracranial contents. Soft tissues of the neck are normal. Lung apices are normal. Normal vertebral body alignment. No fractures or dislocations. No significant degenerative change. Impression: 1. No cervical vertebral fracture or traumatic malalignment. This document has been electronically signed by: Corky Nance MD on 04/07/2025 17:26:33 Discharge Plan Discharge Clinical Impression: Closed head injury, Cervical strain Patient Disposition: Home, Self-Care Instructions: Cervical Strain (ED), Head Injury (ED) Additional Instructions: The CT scan of your brain and cervical spine did not show any traumatic injuries. A concussion does not show up on a CT scan. You may use ibuprofen/Tylenol as needed for further headaches or neck pain. You may also use warm compresses. I would avoid steering at phone, TV and computer screens until your headaches resolve Follow up with your primary doctor, return for new or worsening symptoms Prescriptions: No Action nitrofurantoin monohyd/m-cryst [Macrobid] 100 mg capsule 100 mg PO Q12H 5 Days Qty: 10 0RF Rx Instructions: must administer with a meal/food cefixime 400 mg capsule 400 mg PO DAILY 7 Days Qty: 7 0RF pyridoxine (vitamin B6) 25 mg tablet 25 mg PO TID 30 Days Qty: 90 0RF pantoprazole [Protonix] 40 mg tablet,delayed release (DR/EC) 40 mg PO DAILY Qty: 20 0RF promethazine 25 mg tablet 25 mg PO Q6H PRN (Reason: nausea and vomiting) Qty: 14 0RF Print Language: Polish
[2025-04-07 18:12] VITALS: BP 120/62; PULSE 76; RESP 18; TEMP 36.8; O2SAT 98
[2025-04-07 18:22] VITALS: BP 120/62; PULSE 76; RESP 18; TEMP 36.8; O2SAT 98
== END 2025-04-07 18:22 | disposition home or self-care (01) ==
LOC: HO.ED 18:22
PROVIDERS: Emergency Provider Student in an Organized Health Care Education/Training Program
DX: S16.1XXA Strain of muscle, fascia and tendon at neck level, initial encounter (principal); S39.92XA Unspecified injury of lower back, initial encounter; R51.9 Headache, unspecified; M54.2 Cervicalgia; M54.6 Pain in thoracic spine; R11.0 Nausea; W18.2XXA Fall in (into) shower or empty bathtub, initial encounter; Y93.E1 Activity, personal bathing and showering; Y92.002 Bathroom of unspecified non-institutional (private) residence as the place of occurrence of the external cause; Y99.8 Other external cause status
CPT/HCPCS: 70450; 72072; 72125; 99282; 99284

== ENCOUNTER → 2025-04-07 14:51 | Outpatient (BNV) | payer OTHER, SELFPAY | PROVIDERS: Visit Provider Radiology Diagnostic Radiology | DX: M54.2 Cervicalgia (principal); S09.90XA Unspecified injury of head, initial encounter; M54.6 Pain in thoracic spine; Z04.3 Encounter for examination and observation following other accident | CPT/HCPCS: 70450; 72072; 72125 ==